=== PATIENT | female | born 1970 | race American Indian/Alaskan Native ===

== ENCOUNTER 2018-02-07 02:03 | Emergency (ER) | payer MEDICARE, OTHER ==
[~2018-02-07] VITALS: Ht 149.9 cm; Wt 136.1 kg
--- OUTSIDE RECORDS SUMMARY | ~2018-02-07 | XMS | Encounter Summary ---
Demographics + + + | Address | [address] | | | [place] [address] | + + + | Home Phone | | + + + | Preferred Language | Unknown | + + + | Marital Status | Single | + + + | Evangelical Affiliation | Unknown | + + + | Race | Unknown | + + + | Ethnic Group | Unknown | + + + Author + + + | Author | [facility] | | | and [place] | + + + | Organization | [facility] | | | and [place] | + + + | Address | Unknown | + + + | Phone | Unavailable | + + + Support + + +---------+ + | Name | Relationship | Address | Phone | + + +---------+ + | Raphael Celestin | ECON | Unknown | | + + +---------+ + | Keely Henry/Erick | ECON | Unknown | | + + +---------+ + | Zoraida Horton/Charles | ECON | Unknown | | + + +---------+ + Care Team Providers + +------+ + | Care Internet Project Manager Name | Role | Phone | + +------+ + | Kieran Phoenix DO | PCP | | + +------+ + Reason for Visit + + + | Reason | Comments | + + + | Medication Refill | | + + + Encounter Details +--------+--------+ + + + | Date | Type | Department | Care Team | Description | +--------+--------+ + + + | 02/04/ | Refill | [facility] | Benito Martin MD | Medication Refill | | 2017 | | [facility] | [address] | | | | | CLINIC [address] | [place] | | | | | [address] [place], | [id number] | | | | | [place] [address] | | | | | | [phone] | | | +--------+--------+ + + + Social History + +-------+ +--------+ + | Tobacco Use | Types | Packs/Day | Years | Date | | | | | Used | | + +-------+ +--------+ + | Former Smoker | | 1.5 | 18 | Quit: 06/24/2009 | + +-------+ +--------+ + + +---+---+---+ | Smokeless Tobacco: | | | | | Never Used | | | | + +---+---+---+ + + +---------+ + | Alcohol Use | Drinks/We | oz/Week | Comments | | | ek | | | + + +---------+ + | Yes | 0 | 0.0 | once a year | | | Standard | | | | | drinks or | | | | | | | | | | equivalen | | | | | t | | | + + +---------+ + + + + | Sex Assigned at | Date Recorded | | | | + + + | Not on file | | + + + as of this encounter Plan of Treatment +--------+ + + + + | Date | Type | Specialty | Care Team | Description | +--------+ + + + + | 02/21/ | Procedure | Neurology | Benito Martin MD | | | 2017 | visit | | [address] | | | | | | [place] | | | | | | [address] | | | | | | | | +--------+ + + + + | 03/07/ | Office | Cardiology | Chad Barnes, | | | 2017 | Visit | | [address] [place] [address] [place] | | | | | | [place], | | | | | | [place] [address] | | | | | | [phone] | | | | | | | | +--------+ + + + + | 03/26/ | Office | Neurology | Yvonne, | | | 2017 | Visit | | [address] | | | | | [address] [place], | | | | | | [place] [address] | | | | | | [phone] | | | | | | | | +--------+ + + + + | 08/05/ | Office | Neurology | Benito Martin MD | | | 2018 | Visit | | [address] | | | | | | [place] | | | | | | [address] | | | | | | | | +--------+ + + + + as of this encounter Visit Diagnoses Not on filein this encounter"
--- OUTSIDE RECORDS SUMMARY | ~2018-02-07 | XMS | Clinical Summary ---
Demographics + + + | Address | [address] | | | [place] [address] | + + + | Home Phone | | + + + | Preferred Language | Unknown | + + + | Marital Status | Single | + + + | Spiritism Affiliation | Unknown | + + + | Race | Unknown | + + + | Ethnic Group | Unknown | + + + Author + + + | Author | [facility] | | | and [place] | + + + | Organization | [facility] | | | and [place] [...] Team Providers + +------+ + | Care Veneer Production Machine Operator Name | Role | Phone | + +------+ + | Kieran Phoenix DO | PP | | + +------+ + Allergies + + + + + + | Active Allergy | Reactions | Severity | Noted | Comments | | | | | Date | | + + + + + + | Bee Venom | Anaphylaxis | High | 12/01/19 | | | | | | 14 | | + + + + + + | Coffee | Nausea And Vomiting | Medium | 12/01/19 | | | | | | 14 | | + + + + + + | Diatrizoate | Diarrhea, Nausea And | Medium | 04/04/20 | Gastrografin - | | | Vomiting | | 15 | Vomiting and | | | | | | diarrhea | | | | | | Gastrografin - | | | | | | Vomiting and | | | | | | diarrhea | + + + + + + | Dicyclomine | | | 11/23/19 | Other reaction(s): | | | | | 16 | Unknown | + + + + + + | Ondansetron | | | 03/22/20 | Other reaction(s): | | | | | 16 | Unknown | + + + + + + | Peg | Nausea And Vomiting | Medium | 06/07/19 | | | 3350-Electrolytes | | | 16 | | + + + + + + | Scopolamine | Other (See Comments) | High | 05/03/19 | Other reaction(s): | | | | | 16 | Unknown Other | | | | | | reaction(s): Unknown | | | | | | loss of vision | | | | | | loss of vision | + + + + + + Current Medications + + +---------+---------+------+------+-------+ | Prescription | Sig. | Disp. | Refills | Star | End | Statu | | | | | | t | Date | s | | | | | | Date | | | + + +---------+---------+------+------+-------+ | lidocaine | Place 1 patch onto | 30 | 2 | 10/1 | | Activ | | (LIDODERM) 5% | the skin Daily. | patch | | 6/20 | | e | | patchIndications: | Apply for 12 hours, | | | 14 | | | | Neuropathic pain | then remove for 12 | | | | | | | | hours. | | | | | | + + +---------+---------+------+------+-------+ | frovatriptan | Take 2.5 mg by mouth | | | | | Activ | | (FROVA) 2.5 MG | Twice daily as | | | | | e | | tablet | needed. if headache | | | | | | | | recurs, may take a | | | | | | | | second tablet if | | | | | | | | first dose provided | | | | | | | | relief and at least | | | | | | | | 2 hours have elapsed | | | | | | | | since the first | | | | | | | | dose. No more than | | | | | | | | 3 tablets in 24 | | | | | | | | hours. | | | | | | + + +---------+---------+------+------+-------+ | lamoTRIgine | Take 200 mg by mouth | | | | | Activ | | (LAMICTAL) 100 mg | 4 times daily. | | | | | e | | tablet | | | | | | | + + +---------+---------+------+------+-------+ | estradiol | Take 2 mg by mouth | | | | | Activ | | (ESTRACE) 2 MG | Daily. | | | | | e | | tablet | | | | | | | + + +---------+---------+------+------+-------+ | promethazine | Take 25 mg by mouth | | | | | Activ | | (PHENERGAN) 25 mg | every 6 hours as | | | | | e | | tablet | needed (take 1 | | | | | | | | tablet by mouth | | | | | | | | every 6 hours if | | | | | | | | needed for nausea | | | | | | | | and vomiting). | | | | | | + + +---------+---------+------+------+-------+ | levothyroxine | Take 100 mcg by | | | | | Activ | | (SYNTHROID, | mouth every morning | | | | | e | | LEVOTHROID) 100 mcg | (before breakfast). | | | | | | | tablet | | | | | | | + + +---------+---------+------+------+-------+ | levothyroxine | Take 88 mcg by mouth | | | | | Activ | | (SYNTHROID, | every morning | | | | | e | | LEVOTHROID) 88 mcg | (before breakfast). | | | | | | | tablet | | | | | | | + + +---------+---------+------+------+-------+ | lidocaine 5% | Apply topically as | | | | | Activ | | ointment | needed. | | | | | e | + + +---------+---------+------+------+-------+ | EPINEPHrine | Inject 0.3 mg into | | | | | Activ | | (EPIPEN) 0.3 mg/0.3 | the muscle as needed | | | | | e | | mL injection | for Anaphylaxis. | | | | | | + + +---------+---------+------+------+-------+ | baclofen | Take 10 mg by mouth | | | 2 | | Activ | | (LIORESAL) 10 mg | 2 times daily. | | | 520 | | e | | tablet | | | | 16 | | | + + +---------+---------+------+------+-------+ | omeprazole | Take 20 mg by mouth | | | 07/2 | | Activ | | (PRILOSEC) 20 mg | Daily. | | | 820 | | e | | capsule | | | | 16 | | | + + +---------+---------+------+------+-------+ | cholecalciferol | Take 1,000 Units by | | | | | Activ | | (CHOLECALCIFEROL) | mouth Daily. | | | | | e | | 1000 units TABS | | | | | | | + + +---------+---------+------+------+-------+ | DULoxetine | One cap am and 2 | 90 | 3 | 03/1 | | Activ | | (CYMBALTA) [address] | caps pm | capsule | | 5/20 | | e | | capsule | | | | 18 | | | + + +---------+---------+------+------+-------+ | ketorolac | 1 ml Intramuscular | 1 mL | 1 | 07/2 | | Activ | | (TORADOL) 15 mg/mL | every 3 weeks for | | | 7/20 | | e | | injection | pain; IM performed | | | 18 | | | | | by patient | | | | | | + + +---------+---------+------+------+-------+ | zonisamide | Take 1 capsule by | 90 | 1 | 08/3 | | Activ | | (ZONEGRAN) 25 mg | mouth 3 times daily. | capsule | | 0/20 | | e | | capsule | | | | 18 | | | + + +---------+---------+------+------+-------+ | oxyCODONE 10 MG | Take 1 tablet by | 70 | 0 | 10/1 | | Activ | | TABS | mouth 5 times daily | tablet | | 6/20 | | e | | | for 14 days. | | | 18 | | | + + +---------+---------+------+------+-------+ | oxyCODONE 10 MG | Take 1 tablet by | 70 | 0 | 09/1 | 10/0 | Disco | | TABS | mouth 5 times daily | tablet | | 0/20 | 1/20 | ntinu | | | for 14 days. | | | 18 | 18 | ed | + + +---------+---------+------+------+-------+ | oxyCODONE 10 MG | Take 1 tablet by | 70 | 0 | 10/0 | 10/1 | Disco | | TABS | mouth 5 times daily | tablet | | 1/20 | 6/20 | ntinu | | | for 14 days. | | | 18 | 18 | ed | + + +---------+---------+------+------+-------+ Active Problems + + + | Problem | Noted Date | + + + | Opioid contract exists | 05/14/2017 | + + + | Other chest pain | 07/27/2015 | + + + + + | Overview: Echocardiogram done on 09/26/2017 shows this was a | | technically difficult study with suboptimal views, the left | | ventricle appears normal in size with normal systolic function EF | | 55%, the right ventricle is normal in size and function, no | | significant valvular pathology, there is no pericardial effusion. | | Jhonny Romero MD. | + + + + + | Abdominal pain, generalized | 05/10/2015 | + + + | Opioid type dependence, continuous ([facility]) | 05/10/2015 | + + + | Morbid obesity ([facility]) | 05/10/2015 | + + + | Right lumbar radiculopathy | 02/23/2014 | + + + | Lumbalgia | 12/02/2013 | + + + | Fibromyalgia | 12/02/2013 | + + + | BMI 50.0-59.9, adult ([facility]) | 06/25/2011 | + + + | Endometriosis | | + + + | Migraine | | + + + | Seizure (HCC) | | + + + | Stomach ulcer | | + + + | Angina pectoris (HCC) | | + + + + + | Overview: TTM study 08/16/15 to 09/14/15 (30 days) reveals | | sinus rhythm and sinus tachycardia. No ectopy was shown | + + Encounters +--------+ + + + + | Date | Type | Specialty | Care Team | Description | +--------+ + + + + | 02/04/ | Refill | | Benito Martin MD | Medication Refill | | 2017 | | | | | +--------+ + + + + | 01/21/ | Telephone | | Benito Martin MD | Medication Refill | | 2017 | | | | | +--------+ + + + + | 01/20/ | Refill | | Benito Martin MD | Medication Refill | | 2017 | | | | | +--------+ + + + + | 12/30/ | Refill | | Benito Martin MD | Medication Refill | | 2017 | | | | | +--------+ + + + + | 12/25/ | Hospital | | Marilia Barnes, | | | 2017 | Encounter | | | | +--------+ + + + + | 12/25/ | Hospital | | Marilia Barnes, | Other chest pain; | | 2017 | Encounter | | 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, | Abnormal EKG | | | | | [facility] | | +--------+ + + + + | 12/19/ | Refill | | Benito Martin MD | Medication Refill | | 2017 | | | | | +--------+ + + + + | 12/11/ | Telephone | | Marilia Barnes, | Appointment Question | | 2017 | | | | | +--------+ + + + + | 12/05/ | Telephone | | Marilia Barnes, | Diagnostic Order | | 2018 | | | MD | | +--------+ + + + + | 12/02/ | Office | | Marilai Barnes, | Other chest pain | | 2017 | Visit | | MD | (Primary Dx); | | | | | | Abnormal EKG | +--------+ + + + + | 12/02/ | Refill | | Benito Martin MD | Medication Refill | | 2017 | | | | | +--------+ + + + + | 11/18/ | Telephone | | Benito Martin MD | Medication Refill | 2017 | | | | | +--------+ + + + + | 11/15/ | Telephone | | Benito Martin MD | Medication Related | | 2017 | | | | | +--------+ + + + + | 11/14/ | Refill | | Benito Martin MD | Medication Refill | | 2017 | | | | | +--------+ + + + + from Last 3 Months Family History + + +------+ + | Medical History | Relation | Name | Comments | + + +------+ + | Arthritis | Mother | | | + + +------+ + | Diabetes | Mother | | | + + +------+ + + +------+ + + | Relation | Name | Status | Comments | + +------+ + + | Father | | | homicide | + +------+ + + | Mother | | Alive | | + +------+ + + Social History + +-------+ +--------+ [...] on file | | + + + Last Filed Vital Signs + + + + | Vital Sign | Reading | Time Taken | + + + + | Blood Pressure | 132/60 | 12/02/2017 1525 PDT | + + + + | Pulse | 94 | 12/02/2017 1525 PDT | + + + + | Temperature | 37 C (98.6 F) | 07/21/2015 1138 PDT | + + + + | Respiratory Rate | 26 | 12/02/20171524 PDT | + + + + | Oxygen Saturation | 97% | 08/23/20171321 PDT | + + + + | Inhaled Oxygen | - | - | | Concentration | | | + + + + | Weight | 137 kg (302 lb) | 12/02/20171524 PDT | + + + + | Height | 149.9 cm (4' 11") | 12/02/20171524 PDT | + + + + | Body Mass Index | 61 | 12/02/2017 1525 PDT | + + + + Plan of Treatment +--------+ + + + + | Date | Type | Specialty | Care Team | Description | +--------+ + + + + | 02/21/ | Procedure | | Benito Martin MD | | | 2017 | visit | | [address] | | | | | | [place] | | | | | | [address] | | | | | | | | +--------+ + + + + | 03/07/ | Office | | Marilia Barnes, | | | 2017 | Visit | | [address] | | | | | | [place], | | | | | | [place] [address] | | | | | | [phone] | | | | | | | | +--------+ + + + + | 03/26/ | Office | | Yvonne, | | | 2017 | Visit | | [address] | | | | | [address] [place], | | | | | | [place] [address] | | | | | | [phone] | | | | | | | | +--------+ + + + + | 08/05/ | Office | | Benito Martin MD | | | 2018 | Visit | | [address] | | | | | | [place], [place] | | | | | | [address] | | | | | | | | +--------+ + + + + + + + + + | Health Maintenance | Due Date | Last Done | Comments | + + + + + | Vaccine: | 09/09/199 | | | | Dtap/Tdap/Td (1 - | 2 | | | | Tdap) | | | | + + + + + | Vaccine: | | | | | Pneumococcal 19-64 | 2 | | | | (PPSV23 only) Medium | | | | | Risk (1 of 1 - | | | | | PPSV23) | | | | + + + + + | Statin Therapy | | | | | (optimal intensity) | 5 | | | + + + + + | Vaccine: Influenza | | | | | (#1) | 8 | | | + + + + + Procedures + +--------+ + + + | Procedure Name | Priori | Date/Time | Associated Diagnosis | Comments | | | ty | | | | + +--------+ + + + | NM NUCLEAR STRESS | Routin | 12/25/2017 | Other chest pain | Results for this | | TEST (PHARMACOLOGIC | e | 1223 PDT | Abnormal EKG | procedure are in the | | - VASODILATOR) | | | | results section. | + +--------+ + + + | ECG 12 LEAD | Routin | 12/02/2017 | Other chest pain | Results for this | | | e | 1532 PDT | | procedure are in the | | | | | | results section. | + +--------+ + + + from Last 3 Months Results NM Nuclear Stress Test (Vasodilator) (12/25/2017 1223) + +--------+ + + | Component | Value | Ref Range | Performed At | + +--------+ + + | BASELINE HEART RATE | 95 | bpm | [facility] | + +--------+ + + | BASELINE BLOOD | 114/73 | mmHg | [facility] | | PRESSURE | | | | + +--------+ + + | PEAK HEART RATE | 113 | | [facility] | + +--------+ + + | PEAK BLOOD PRESSURE | 114/73 | mmHG | [facility] | + +--------+ + + | Target HR | 150 | | [facility] | + +--------+ + + | Percent HR | 64 | | [facility] | + +--------+ + + | LVEF-SPECT NUCLEAR | 57 | % | [facility] | | STRESS/VIABILITY | | | | + +--------+ + + | ST Elevation (mm) | 0.0 | mm | [facility] | + +--------+ + + + + + | Narrative | Performed At | + + + | | [facility] | | 1. Pharmacologic stress without diagnostic changes.2. Normal LV | | | size and systolic function with LVEF 57%.3. Perfusion imaging | | | notable for small to moderate sized, mild intensity area of reduced | | | uptake inferiorly without significant reversibility suggestive of | | | attenuation artifact, especially given patient's body habitus. No | | | obvious area of reversibility/ischemia noted otherwise. | | + + + + +---------+ + + | Performing | Address | City/State/Zipcode | Phone Number | | Organization | | | | + +---------+ + + | [facility] | | | | + +---------+ + + ECG 12 lead (12/02/2017 1532) + + + + + | Component | Value | Ref Range | Performed At | + + + + + | VENTRICULAR RATE EKG | 94 | BPM | [facility] | + + + + + | ATRIAL RATE | 94 | BPM | [facility] | + + + + + | P-R INTERVAL | 134 | ms | [facility] | + + + + + | QRS DURATION | 82 | ms | [facility] | + + + + + | Q-T INTERVAL | 356 | ms | [facility] | + + + + + | Q-T INTERVAL | 445 | ms | [facility] | | (CORRECTED) | | | | + + + + + | P WAVE AXIS | 47 | degrees | [facility] | + + + + + | QRS AXIS | 14 | degrees | [facility] | + + + + + | T AXIS | 14 | degrees | [facility] | + + + + + | INTERPRETATION TEXT | Normal sinus rhythmLow | | [facility] | | | voltage QRSCannot rule | | | | | out Anterior infarct | | | | | (cited on or before | | | | | 02-DEC-2017)Abnormal | | | | | ECGWhen compared with | | | | | ECG of 02-DEC-2017 | | | | | 15:31, (Unconfirmed)No | | | | | significant change was | | | | | foundConfirmed by | | | | | MARILIA BARNES MD | | | | | ([id number]) on 12/02/2017 | | | | | 4:40:01 PM | | | + + + + + + + + | Narrative | Performed At | + + + | | | + + + + +---------+ + + | Performing | Address | City/State/Zipcode | Phone Number | | Organization | | | | + +---------+ + + | [facility] | | | | + +---------+ + + from Last 3 Months Insurance + +--------+ +--------+ +---------+ | Payer | Benefi | Subscriber | Type | Phone | Address | | | t Plan | ID | | | | | | / | | | | | | | Group | | | | | + +--------+ +--------+ +---------+ | MEDICARE | MEDICA | [id number] | Medica | +1- | | | | RE | | re | [phone] | | | | PART A | | | | | | | AND B | | | | | + +--------+ +--------+ +---------+ | MEDICARE | MEDICA | [id number] | Medica | +- | | | | RE | | re | [phone] | | | | PART A | | | | | | | AND B | | | | | + +--------+ +--------+ +---------+ | [employer] | MODA | [id number] | Medica | +- | | | MEDICAID HMO | HEALTH | | id | [id number] | | | | MDCD | | | | | | | [place] | | | | | + +--------+ +--------+ +---------+ | [employer] [facility] | IHS | [id number] | Indemn | | | | SERVICE | YELLOW | | ity | | | | | [place] | | | | | + +--------+ +--------+ +---------+ + +--------+ +--------+ + + | Guarantor Name | Accoun | Relation to | Date | Phone | Billing Address | | | t Type | Patient | of | | | | | | | | | | + +--------+ +--------+ + + | ALIN HENRY | Person | Self [birth year] | Home: | [address] | | | al/Fam | | 1970 | [phone] | [place] [address] | | | [address] | | | [phone] | | + +--------+ +--------+ + + | ALIN HENRY | Person | Self [birth year] | Home: | [address] | | | al/Fam | | 1970 | [phone] | [place] [address] | | | caro | | | [address] | | + +--------+ +--------+ + +
--- OUTSIDE RECORDS SUMMARY | ~2018-02-07 | XMS | Clinical Summary ---
Demographics + + + | Address | [address] | | | [place] [address] | + + + | Home Phone | | + + + | Preferred Language | Unknown | + + + | Marital Status | Single | + + + | Presybeterian Affiliation | Unknown | + + + | Race | Unknown | + + + | Ethnic Group | Unknown | + + + Author + + + | Author | [facility] | | | and [place] | + + + | Organization | [facility] | | | and [place] | [...] Team Providers + +------+ + | Care Wellness Spa Manager Name | Role | Phone | [...] + + | Opioid type dependence, continuous ([facility]) | 05/10/2015 | + + + | Morbid obesity ([facility]) | 05/10/2015 | + + + | Right lumbar radiculopathy | 02/23/2014 | + + + | Lumbalgia | 12/02/2013 | + + + | Fibromyalgia | 12/02/2013 | + + + | BMI 50.0-59.9, adult ([facility]) | 06/25/2011 | + + + | [...] | | 2017 | 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, | | | | | | [place] [address] | | | | | | [phone] | | | | | | | | +--------+ + + + + | 03/26/ | Office | | Yvonne, | | | 2017 | Visit | | [address] | | | | | [address] [place], | | | | | | [place] [address] | | | | | | [phone] | | | | | | | | +--------+ + + + + | 08/05/ | Office | | Benito Martin MD | | | 2018 | Visit | | [address] | | | | | | [place], [place] | | | | | | [address] | | | | | | | [...] BARNES MD | | | | | ([id number]) on 12/02/2017 | | | | | [...] +--------+ +---------+ | MEDICARE | MEDICA | [id number] | Medica | +1- | | | | RE | | re | [phone] | | | | PART A | | | | | | | AND B | | | | | + +--------+ +--------+ +---------+ | MEDICARE | MEDICA | [id number] | Medica | +- | | | | RE | | re | [phone] | | | | PART A | | | | | | | AND B | | | | | + +--------+ +--------+ +---------+ | [employer] | MODA | [id number] | Medica | +- | | | MEDICAID HMO | HEALTH | | id | 9821 | | | | MDCD | | | | | | | HMO [place] | | | | | + +--------+ +--------+ +---------+ | [facility] | IHS | [id number] | Indemn | | | | SERVICE [...] | 1970 | [address] | [place] [address] | | | caro | | | [address] | | + +--------+ +--------+ + + | ALIN HENRY | Person | Self [birth year] | Home: | [address] | | | al/Fam | | 1970 | [address]- | [place] [address] | | | caro | | | [address] | | + +--------+ +--------+ + +
--- OUTSIDE RECORDS SUMMARY | ~2018-02-07 | XMS | Encounter Summary ---
Demographics + + + | Address | [address] | | | [place] [address] | + + + | Home Phone | | + + + | Preferred Language | Unknown | + + + | Marital Status | Single | + + + | Christianity Affiliation | Unknown | + + + | Race | Unknown | + + + | Ethnic Group | Unknown | + + + Author + + + | Author | [facility] | | | and [place] | + + + | Organization | [facility] | | | and [place] [...] Team Providers + +------+ + | Care Hoister Name | Role | Phone | + +------+ + | Kieran Phoenix DO | PCP | | + +------+ + Reason for Visit + + + | Reason | Comments | + + + | Medication Refill | | + + + Encounter Details +--------+ + + + + | Date | Type | Department | Care Team | Description | +--------+ + + + + | 01/21/ | Telephone | [facility] | Benito Martin MD | Medication Refill | | 2018 | | HOSPITAL NEUROLOGY | [address] | | | | | CLINIC [address] | [place] | | | | | [address] [place], | [address] | | | | | [place] [address] | | | | | | [phone] | | | +--------+ + + + + Social History + +-------+ [...] [address] | | | | | | [place] | | | | | | [address] | | | | | | | | +--------+ + + + + | 03/07/ | Office | Cardiology | Chad Barnes, | | | 2017 | Visit | | [address] [facility] | | | | | | [place], | | | | | | [place] [address] | | | | | | [phone] | | | | | | | | +--------+ + + + + | 03/26/ | Office | Neurology | Yvonne, | | | 2017 | Visit | | [address] | | | [address] [place], | | | | | | [place] [address] | | | | | | [phone] | | | | | | | | +--------+ + + + + | 08/05/ | Office | Neurology | Benito Martin MD | | | 2018 | Visit | | [address] | | | | | | [place] | | | | | | [address] | | | | | | | | +--------+ + + + + as of this encounter Visit Diagnoses Not on filein this encounter"
--- OUTSIDE RECORDS SUMMARY | ~2018-02-07 | XMS | Encounter Summary ---
Demographics + + + | Address | [address] | | | [place] [address] | + + + | Home Phone | | + + + | Preferred Language | Unknown | + + + | Marital Status | Single | + + + | Jew Affiliation | Unknown | + + + | Race | Unknown | + + + | Ethnic Group | Unknown | + + + Author + + + | Author | [facility] | | | and Niranjanana | + + + | Organization | [facility] | | | and [place] [...] Team Providers + +------+ + | Care Assistant Fitness Manager Name | Role | Phone | + +------+ + | Kieran Phoenix DO | PCP | | + +------+ + Reason for Referral Diagnostic/Screening (Routine) +--------+--------+ + + + + | Status | Reason | Specialty | Diagnoses / | Referred By | Referred To | | | | | Procedures | Contact | Contact | +--------+--------+ + + + + | Closed | | Radiology | Diagnoses | [place], | [facility] | | | | | Other chest | MD Chad | Medicine | | | | | pain | [address] | [address] | | | | | Abnormal EKG | [address] | [place], | | | | | Procedures | [place], | [place] | | | | | [place] | [place] [address] | [address] | | | | | Stress Test | Phone: | Phone: | | | | | | [phone] | [phone] | | | | | (Vasodilator | Fax: | Fax: | | | | | ) CHG | [phone] | [phone] | | | | | MYOCARDIAL | | | | | | | SPECT | | | | | | | MULTIPLE | | | | | | | STUDIES LA | | | | | | | CV STRS TST | | | | | | | XERS&/OR RX | | | | | | | CONT ECG W/O | | | | | | | I&R LA | | | | | | | CARDIAC | | | | | | | STRESS | | | | | | | TST,INTERP/R | | | | | | | EPT ONLY | | | +--------+--------+ + + + + Diagnostic/Screening (Routine) +--------+--------+ + + + + | Status | Reason | Specialty | Diagnoses / | Referred By | Referred To | | | | | Procedures | Contact | Contact | +--------+--------+ + + + + | Closed | | Radiology | Diagnoses | [place], | [facility] | | | | | Other chest | MD Chad | Medicine | | | | | pain | [address] | [address] | | | | | Abnormal EKG | [address] | [place], | | | | | Procedures | [place], | [place] | | | | | [place] | [place] [address] | [address] | | | | | Stress Test | Phone: | Phone: | | | | | | [phone] | [phone] | | | | | (Vasodilator | Fax: | Fax: | | | | | ) CHG | [phone] | [phone] | | | | | MYOCARDIAL | | | | | | | SPECT | | | | | | | MULTIPLE | | | | | | | STUDIES LA | | | | | | | CV STRS TST | | | | | | | XERS&/OR RX | | | | | | | CONT ECG W/O | | | | | | | I&R LA | | | | | | | CARDIAC | | | | | | | STRESS | | | | | | | TST,INTERP/R | | | | | | | EPT ONLY | | | +--------+--------+ + + + + Reason for Visit Auth/Cert +--------+--------+ + + + + | Status | Reason | Specialty | Diagnoses / | Referred By | Referred To | | | | | Procedures | Contact | Contact | +--------+--------+ + + + + | | | | | | | +--------+--------+ + + + + Encounter Details +--------+ + + + + | Date | Type | Department | Care Team | Description | +--------+ + + + + | / | Hospital | [facility] | Chad Barnes, | Other chest pain; | | 2018 | Encounter | [facility] | MD [address] | Abnormal EKG | | | | MEDICINE [address] | [address] [place], | | | | | [address] [place], | [place] [address] | | | | | [place] [address] | [phone] | | | | | [phone] | | | | | | | Weight Control Lecturer, Ws | | +--------+ + + + + [...] + + + as of this encounter Medications at Time of Discharge + + +---------+---------+ + + | Medication | Sig. | Disp. | Refills | Start | End Date | | | | | | Date | | + + +---------+---------+ + + | baclofen | Take 10 mg by mouth | | | 11/14/19 | | | (LIORESAL) 10 mg | 2 times daily. | | | 16 | | | tablet | | | | | | + + +---------+---------+ + + | cholecalciferol | Take 1,000 Units by | | | | | | (CHOLECALCIFEROL) | mouth Daily. | | | | | | 1000 units TABS | | | | | | + + +---------+---------+ + + | DULoxetine | One cap am and 2 | 90 | 3 | 07/05/19 | | | (CYMBALTA) [address] | caps pm | capsule | | 18 | | | capsule | | | | | | + + +---------+---------+ + + | EPINEPHrine | Inject 0.3 mg into | | | | | | (EPIPEN) 0.3 mg/0.3 | the muscle as needed | | | | | | mL injection | for Anaphylaxis. | | | | | + + +---------+---------+ + + | estradiol | Take 2 mg by mouth | | | | | | (ESTRACE) 2 MG | Daily. | | | | | | tablet | | | | | | + + +---------+---------+ + + | frovatriptan | Take 2.5 mg by mouth | | | | | | (FROVA) 2.5 MG | Twice daily as | | | | | | tablet | needed. if headache [...] | hours. | | | | | + + +---------+---------+ + + | ketorolac | 1 ml Intramuscular | 1 mL | 1 | 11/16/19 | | | (TORADOL) 15 mg/mL | every 3 weeks for | | | 18 | | | injection | pain; IM performed | | | | | | | by patient | | | | | + + +---------+---------+ + + | lamoTRIgine | Take 200 mg by mouth | | | | | | (LAMICTAL) 100 mg | 4 times daily. | | | | | | tablet | | | | | | + + +---------+---------+ + + | levothyroxine | Take 100 mcg by | | | | | | (SYNTHROID, | mouth every morning | | | | | | LEVOTHROID) 100 mcg | (before breakfast). | | | | | | tablet | | | | | | + + +---------+---------+ + + | levothyroxine | Take 88 mcg by mouth | | | | | | (SYNTHROID, | every morning | | | | | | LEVOTHROID) 88 mcg | (before breakfast). | | | | | | tablet | | | | | | + + +---------+---------+ + + | lidocaine | Place 1 patch onto | 30 | 2 | 02/05/20 | | | (LIDODERM) 5% | the skin Daily. | patch | | 14 | | | patchIndications: | Apply for 12 hours, | | | | | | Neuropathic pain | then remove for 12 | | | | | | | hours. | | | | | + + +---------+---------+ + + | lidocaine 5% | Apply topically as | | | | | | ointment | needed. | | | | | + + +---------+---------+ + + | omeprazole | Take 20 mg by mouth | | | 11/17/19 | | | (PRILOSEC) 20 mg | Daily. | | | 16 | | | capsule | | | | | | + + +---------+---------+ + + | promethazine | Take 25 mg by mouth | | | | | | (PHENERGAN) 25 mg | every 6 hours as | | | | | | tablet | needed (take 1 | | | | | | | tablet by mouth | | | | | | | every 6 hours if | | | | | | | needed for nausea | | | | | | | and vomiting). | | | | | + + +---------+---------+ + + | zonisamide | Take 1 capsule by | 90 | 1 | 12/20/19 | | | (ZONEGRAN) 25 mg | mouth 3 times daily. | capsule | | 18 | | | capsule | | | | | | + + +---------+---------+ + + | oxyCODONE 10 MG | Take 1 tablet by | 70 | 0 | 12/03/19 | | | TABS | mouth 5 times daily | tablet | | 18 | 8 | | | for 14 days. | | | | | + + +---------+---------+ + + as of this encounter Plan of Treatment +--------+ + + + + | Date | Type | Specialty | Care Team | Description | +--------+ + + + + | 02/21/ | Procedure | Neurology | Benito Martin MD | | | 2017 | visit | | [address] | | | | | | [place] | | | | | | [address] | | | | | | | | +--------+ + + + + | 03/07/ | Office | Cardiology | Chad Barnes, | | | 2017 | Visit | | [address] | | | | | | [place], | | | | | | [place] [address] | | | | | | [phone] | | | | | | | | +--------+ + + + + | 03/26/ | Office | Neurology | Yvonne, | | | 2017 | Visit | | [address] | | | | [address] [place], | | | | | | [place] [address] | | | | | | [phone] | | | | | | | | +--------+ + + + + | 08/05/ | Office | Neurology | Benito Martin MD | | | 2019 | Visit | | [address] | | | | | | [place] | | | | | | [address] | | | | | | | | +--------+ + + + + as of this encounter Procedures + +--------+ + + + | [...] section. | + +--------+ + + + in this encounter Results [place] Nuclear Stress Test (Vasodilator) (12/25/2017 [...] | | | + +---------+ + + in this encounter Visit Diagnoses + + | Diagnosis | + + | Other chest pain | + + | Abnormal EKG | + + | Nonspecific abnormal electrocardiogram (ECG) (EKG) | + + Administered Medications + +--------+ +--------+------+------+ | Medication Order | MAR | Action | Dose | Rate | Site | | | Action | Date | | | | + +--------+ +--------+------+------+ | regadenoson (LEXISCAN) | Given | 12/25/2017 | 0.4 mg | | | | injection 0.4 mg 0.4 mg, | | 10:29 | | | | | Intravenous, ONCE PRN, per md, | | PDT | | | | | Starting 12/25/17 at 1028, For | | | | | | | 1 dose, Give IV push over 10 | | | | | | | seconds, then follow immediately | | | | | | | with 5 mL saline flush. | | | | | | + +--------+ +--------+------+------+ +---+---+ | | | +---+---+ + +-------+ + +---+---+ | technetium TC-99M sestamibi | Given | 12/25/2017 | 11.3 | | | | (CARDIOLITE) injection 11.3 | | 10:29 | millicur | | | | millicurie 11.3 millicurie, | | PDT | ies | | | | Intravenous, ONCE PRN, Other, | | | | | | | Starting Sat12/25/17 at 1028, For | | | | | | | 1 dose, Nuclear Medicine | | | | | | + +-------+ + +---+---+ +---+---+ | | | +---+---+ in this encounter"
--- OUTSIDE RECORDS SUMMARY | ~2018-02-07 | XMS | Encounter Summary ---
Demographics + + + | Address | [address] | | | [place] [address] | + + + | Home Phone | | + + + | Preferred Language | Unknown | + + + | Marital Status | Single | + + + | Jehovah'S Witness Affiliation | Unknown | + + + | Race | Unknown | + + + | Ethnic Group | Unknown | + + + Author + + + | Author | [facility] | | | and Niranjanana | + + + | Organization | [facility] | | | and [place] [...] Team Providers + +------+ + | Care Unix Architect Name | Role | Phone | + +------+ + | Kieran Phoenix DO | PCP | | + +------+ + Reason for Visit + + + | Reason | Comments | + + + | Medication Related | | + + + Encounter Details +--------+ + + + + | Date | Type | Department | Care Team | Description | +--------+ + + + + | 11/15/ | Telephone | [facility] | Benito Martin MD | Medication Related | | 2018 | | [facility]OSPITAL [facility] | [address] | | | | | CLINIC [address] | [place] | | | | | [address] [place], | [address] | | | | | [place] [address] | | | | | | [phone] | | | +--------+ + + + [...] [place] | | | | | | [address] | | | | | | | | +--------+ + + + + | 03/07/ | Office | Cardiology | Chad Barnes, | | | 2017 | Visit | | [address] | | | | | | [place], | | | | | | [place] [address] | | | | | | [phone] | | | | | | | | +--------+ + + + + | 03/26/ | Office | Neurology | Yvonne, | | | 2017 | Visit | | [address] | [address] [place], | | | | | | [place] [address] | | | | | | [phone] | | | | | | | | +--------+ + + + + | 08/05/ | Office | Neurology | Benito Martin MD | | | 2018 | Visit | | [address] | | | | | | [place] | | | | | | [address] | | | | | | | | +--------+ + + + + as of this encounter Visit Diagnoses Not on filein this encounter"
--- OUTSIDE RECORDS SUMMARY | ~2018-02-07 | XMS | Encounter Summary ---
Demographics + + + | Address | [address] | | | [place] [address] | + + + | Home Phone | | + + + | Preferred Language | Unknown | + + + | Marital Status | Single | + + + | Anabaptism Affiliation | Unknown | + + + | Race | Unknown | + + + | Ethnic Group | Unknown | + + + Author + + + | Author | [facility] | | | and Niranjanana | + + + | Organization | [facility] | | | and [place] | [...] Team Providers + +------+ + | Care Knife Machine Operator Name | Role | Phone [...] Description | +--------+--------+ + + + | 12/02/ | Refill | [facility] | Benito Martin MD | Medication Refill | | 2017 | | HOSPITAL NEUROLOGY | [address] | | | | | CLINIC [address] | [place] | | | | | [address] [place], | [id number] | | | | | [place] [address] | | | | | | [phone] | | | +--------+--------+ + + + [...] [place] | | | | | | [address] | | | | | | | | +--------+ + + + + | 03/07/ | Office | Cardiology | Chad Barnes, | | | 2017 | Visit | | [address] [place] [address] [place] | | | | | | [place], | | | | | | [place] [address] | | | | | | [phone] | | | | | | | | +--------+ + + + + | 03/26/ | Office | Neurology | Yvonne, | | | 2017 | Visit | | [address] | | [address] [place], | | | | | | [place] [address] | | | | | | [phone] | | | | | | | | +--------+ + + + + | 08/05/ | Office | Neurology | Benito Martin MD | | | 2018 | Visit | | [address] | | | | | | [place], [place] | | | | | | [address] | | | | | | | | +--------+ + + + + + +--------+ + + | Name | Priori | Associated Diagnoses | Order Schedule | | | ty | | | + +--------+ + + | Trigger Point Injection Procedure | Routin | Sprain of | Ordered: 12/11/2017 | | | e | ligaments of lumbar | | | | | spine, sequela | | | | | Chronic low back | | | | | pain without | | | | | sciatica, | | | | | unspecified back | | | | | pain laterality | | + +--------+ + + as of this encounter Visit Diagnoses + + | Diagnosis | + + | Chronic low back pain without sciatica, unspecified back pain laterality - Primary | + + | Sprain of ligaments of lumbar spine, sequela | + +"
--- OUTSIDE RECORDS SUMMARY | ~2018-02-07 | XMS | Encounter Summary ---
Demographics + + + | Address | [address] | | | [place] [address] | + + + | Home Phone | | + + + | Preferred Language | Unknown | + + + | Marital Status | Single | + + + | Anglican Affiliation | Unknown | + + + | Race | Unknown | + + + | Ethnic Group | Unknown | + + + Author + + + | Author | [facility] | | | and Niranjanana | + + + | Organization | [facility] | | | and [place] [...] Team Providers + +------+ + | Care Avionics Repair Technician Name | Role | Phone | + [...] | | | [address] [place], | [id number] | | | | | [place] [address] | | | | | | [phone] | | | +--------+--------+ + + + [...] [place] | | | | | | [address] | | | | | | | | +--------+ + + + + | 03/07/ | Office | Cardiology | Chad Barnes, | | | 2017 | Visit | | [address] [place] [address] [place] | | | | | | [place], | | | | | | [place] [address] | | | | | | [phone] | | | | | | | | +--------+ + + + + | 03/26/ | Office | Neurology | Yvonne, | | | 2017 | Visit | | [address] | | | | [address] [place], | | | | | | [place] [address] | | | | | | [phone] | | | | | | | | +--------+ + + + + | 08/05/ | Office | Neurology | Benito Martin MD | | | 2018 | Visit | | [address] | | | | | | [place], [place] | | | | | | [address] | | | | | | | [...]
--- OUTSIDE RECORDS SUMMARY | ~2018-02-07 | XMS | Clinical Summary ---
Demographics + + + | Address | [address] | | | [place] [address] | + + + | Home Phone | | + + + | Preferred Language | Unknown | + + + | Marital Status | Unknown | + + + | Islam Affiliation | Unknown | + + + | Race | Unknown | + + + | Ethnic Group | Unknown | + + + Author + + + | Author | [facility] | + + + | Organization | [facility] | + + + | Address | Unknown | + + + | Phone | Unavailable | + + + Support + + +---------+ + | Name | Relationship | Address | Phone | + + +---------+ + | Raphael Akhtar | ECON | Unknown | | + + +---------+ + | Lorri,Lupe | ECON | Unknown | | + + +---------+ + Care Team Providers + +------+ + | Care Mixer Operator Raw Salt Name | Role | Phone | + +------+ + | Mihai Snell | PP | | + +------+ + Allergies No Known Allergies Current Medications + + +--------+---------+------+------+-------+ | Prescription | Sig. | Disp. | Refills | Star | End | Statu | | | | | | t | Date | s | | | | | | Date | | | + + +--------+---------+------+------+-------+ | lamivudine | Take 100 mg by mouth | | | | | Activ | | (EPIVIR) 100 MG | 4 (four) times | | | | | e | | tablet | daily. | | | | | | + + +--------+---------+------+------+-------+ | diphenhydrAMINE | Take 25 mg by mouth | | | | | Activ | | (SOMINEX) 25 MG | 2 (two) times daily. | | | | | e | | tablet | | | | | | | + + +--------+---------+------+------+-------+ | nortriptyline | Take 50 mg by mouth | | | | | Activ | | (PAMELOR) 50 MG | nightly. | | | | | e | | capsule | | | | | | | + + +--------+---------+------+------+-------+ | frovatriptan | Take 2.5 mg by mouth | | | | | Activ | | (FROVA) 2.5 MG | as needed for | | | | | e | | tablet | Migraine. If recurs, | | | | | | | | may repeat after 2 | | | | | | | | hours. Max of 3 tabs | | | | | | | | in 24 hours. | | | | | | + + +--------+---------+------+------+-------+ | gabapentin | Take 300 mg by mouth | | | | | Activ | | (NEURONTIN) 300 MG | 2 (two) times | | | | | e | | capsule | daily. | | | | | | + + +--------+---------+------+------+-------+ | lidocaine | Apply topically as | | | | | Activ | | (XYLOCAINE) 5 % | needed. | | | | | e | | ointment | | | | | | | + + +--------+---------+------+------+-------+ | calcium carbonate | Take 600 mg by mouth | | | | | Activ | | (OS-ISIAH) 600 MG TABS | 2 (two) times daily | | | | | e | | | with meals. | | | | | | + + +--------+---------+------+------+-------+ | ergocalciferol | Take 50,000 Units by | | | | | Activ | | (DRISDOL) [address] | mouth once a week. | | | | | e | | UNITS capsule | | | | | | | + + +--------+---------+------+------+-------+ | | Take 1 tablet by | | | | | Activ | | HYDROcodone-acetamin | mouth every 6 (six) | | | | | e | | ophen (NORCO) | hours as needed for | | | | | | | 7.5-325 MG per | Pain. | | | | | | | tablet | | | | | | | + + +--------+---------+------+------+-------+ | ibuprofen (MOTRIN) | Take 800 mg by mouth | | | | | Activ | | 800 MG tablet | every 6 (six) hours | | | | | e | | | as needed for Pain. | | | | | | + + +--------+---------+------+------+-------+ | levothyroxine | Take 1 tablet by | 30 | 11 | 01/0 | | Activ | | (SYNTHROID) 200 MCG | mouth every morning | tablet | | 9/20 | | e | | tablet | before breakfast. | | | 15 | | | + + +--------+---------+------+------+-------+ Active Problems + + + | Problem | Noted Date | + + + | Hypothyroidism | 03/24/2014 | + + + | Thyroid cancer | 03/24/2014 | + + + Social History + +-------+ +--------+------+ | Tobacco Use | Types | Packs/Day | Years | Date | | | | | Used | | + +-------+ +--------+------+ | Former Smoker | | 1.5 | 18 | | + +-------+ +--------+------+ + + + | Sex Assigned at | Date Recorded | | | | + + + | Not on file | | + + + Last Filed Vital Signs + + + + | Vital Sign | Reading | Time Taken | + + + + | Blood Pressure | - | - | + + + + | Pulse | 110 | 03/24/2014 4:00 PM PST | + + + + | Temperature | 36.9 C (98.5 F) | 03/24/2014 4:00 PM PST | + + + + | Respiratory Rate | - | - | + + + + | Oxygen Saturation | 98% | 03/24/2014 4:00 PM PST | + + + + | Inhaled Oxygen | - | - | | Concentration | | | + + + + | Weight | 117.5 kg (259 lb) | 03/24/2014 4:00 PM PST | + + + + | Height | - | - | + + + + | Body Mass Index | - | - | + + + + Plan of Treatment + + + + + | Health Maintenance | Due Date | Last Done | Comments | + + + + + | Vaccine: | | | | | Dtap/Tdap/Td (1 - | 2 | | | | Tdap) | | | | + + + + + | Cervical Cancer | | | | | Screening (Pap) | 3 | | | + + + + + | Vaccine: Influenza | | | | | (#1) | 8 | | | + + + + + Results Not on filefrom Last 3 Months Insurance + +--------+ +------+-------+---------+ | Payer | Benefi | Subscriber | Type | Phone | Address | | | t Plan | ID | | | | | | / | | | | | | | Group | | | | | + +--------+ +------+-------+---------+ | [employer] | [employer] | [id number] | | | | | | WORK | | | | | + +--------+ +------+-------+---------+ + +--------+ +--------+ + + | Guarantor Name | Accoun | Relation to | Date | Phone | Billing Address | | | t Type | Patient | of | | | | | | | | | | + +--------+ +--------+ + + | ALIN MORAN | Person | Self [birth year] Home: | [address] [place] [address] | | | al/Fam | | 1971 | [phone] [place] | | | caro | | | [phone] | [address] | + +--------+ +--------+ + +"
--- OUTSIDE RECORDS SUMMARY | ~2018-02-07 | XMS | Encounter Summary ---
Demographics + + + | Address | [address] | | | [place] [address] | + + + | Home Phone | | + + + | Preferred Language | Unknown | + + + | Marital Status | Single | + + + | Congregational Affiliation | Unknown | + + + | Race | Unknown | + + + | Ethnic Group | Unknown | + + + Author + + + | Author | [facility] | | | and Niranjanana | + + + | Organization | [facility] | | | and [place] [...] Team Providers + +------+ + | Care Channeling Machine Operator Name | Role | Phone [...] Description | +--------+--------+ + + + | 11/14/ | Refill | [facility] | Benito Martin MD | Medication Refill | | 2017 | | HOSPITAL NEUR[facility] | [address] | | | | | CLIN[address] | [place] | | | | | [address] [place], | [phone] | | | | | [place] [address] | | | | | | [phone] | | | +--------+--------+ + + + [...] [place] | | | | | | [address] | | | | | | | | +--------+ + + + + | 03/07/ | Office | Cardiology | Chad Barnes, | | | 2017 | Visit | | [address] [place] [address] [place] | | | | | | [place], | | | | | | [place] [address] | | | | | | [phone] | | | | | | | | +--------+ + + + + | 03/26/ | Office | Neurology | Yvonne, | | | 2017 | Visit | | [address] | | | | [address] [place], | | | | | | [place] [address] | | | | | | [phone] | | | | | | | [...]
--- OUTSIDE RECORDS SUMMARY | ~2018-02-07 | XMS | Encounter Summary ---
Demographics + + + | Address | [address] | | | [place] [address] | + + + | Home Phone | | + + + | Preferred Language | Unknown | + + + | Marital Status | Single | + + + | Congregation Affiliation | Unknown | + + + | Race | Unknown | + + + | Ethnic Group | Unknown | + + + Author + + + | Author | [facility] | | | and Niranjanana | + + + | Organization | [facility] | | | and [place] | [...] Team Providers + +------+ + | Care Disability Rater Name | Role | Phone | + [...] | | | Other chest | MD Marilia | Medicine | | | | | pain | [address] | [address] | | | | | Abnormal EKG | [address] | [place], | | | | | Procedures | [place], | [place] | | | | | [place] | [place] [address] | [address] | | | | | Stress Test | Phone: | Phone: | | | | | | [phone] | [phone] | | | | | (Vasodilator | Fax: | Fax: | | | | | ) CHG | [phone] | [phone] | | | | | MYOCARDIAL | | | | | | | SPECT | | | | | | | MULTIPLE | | | | | | | STUDIES [place] | | | | | | | CV STRS TST | | | | | | | XERS&/OR RX | | | | | | | CONT ECG W/O | | | | | | | I&R [place] | | | | | | | CARDIAC | | | | | | | STRESS | | | | | | | TST,INTERP/R | | | | | | | EPT ONLY | | | +--------+--------+ + + + + Reason for Visit + + + | Reason | Comments | + + + | Follow-up | | + + + | Chest Pain | | + + + Follow Up (Routine) +--------+--------+ + + + + | Status | Reason | Specialty | Diagnoses / | Referred By | Referred To | | | | | Procedures | Contact | Contact | +--------+--------+ + + + + | Closed | | Cardiology | Diagnoses | [place], | Desireewarody, | | | | | Angina | Kieran Bonner DO | MD Marilia | | | | | pectoris, | [address] | [address] | | | | | unspecified | [facility] | [address] | | | | | ([facility]) Other | WAY | [place], | | | | | chest pain | [place], | [place] [address] | | | | | Procedures | [place] [address] | Phone: | | | | | FUP | Phone: | [phone] | | | | | | [phone] | Fax: | | | | | | Fax: | [phone] | | | | | | [phone] | | +--------+--------+ + + + + Encounter Details +--------+---------+ + + + | Date | Type | Department | Care Team | Description | +--------+---------+ + + + | 12/02/ | [facility] | [facility] | Marilia Barnes, | Other chest pain | | 2018 | Visit | CARDIOLOGY [address] | (Primary Dx); | | | | [place], | [place], | Abnormal EKG | | | | [place] [address] | [place] [address] | | | | | [phone] | [phone] | | | | | | | | +--------+---------+ + + + Social History + +-------+ [...] + + + as of this encounter Last Filed Vital Signs + + + + | Vital Sign | Reading | Time Taken | + + + + | Blood Pressure | 132/60 | 12/02/20175 PDT | + + + + | Pulse | 94 | 12/02/20171524 PDT | + + + + | Temperature | - | - | + + + + | Respiratory Rate | 26 | 12/02/20175 PDT | + + + + | Oxygen Saturation | - | - | + + + + | Inhaled Oxygen | - | - | | Concentration | | | + + + + | Weight | 137 kg (302 lb) | 12/02/20171524 PDT | + + + + | Height | 149.9 cm (4' 11") | 12/02/20175 PDT | + + + + | Body Mass Index | 61 | 12/02/20171524 PDT | + + + + in this encounter Instructions Patient Instructions - Kathy Moore RN - 12/02/2017 1600 PDTpersantine Date: Check-in Time: Where to Check In: Instructions 1. Nothing to eat or drink anything 6 hours prior to Persantine/Lexiscan 2. DO NOT drink caffeine 12 hours prior to the test.. 3. You can take all medications the morning of the test with a small sip of water. 4. Please bring a list of your current medications with you. Resting Portion of test: Date: Check-in Time: Where to Check In: Follow up appointment: 2 months Provider: Date: Check-In Time: in this encounter Progress Notes Marilia Barnes, MD - 12/02/2017 1600 PDTFormatting of this note may be different from dagoberto lentz original. PATIENT NAME: Alin Henry : 1970: AGE: 46 y.o. PRIMARY CARE: Kieran Phoenix DO OUTPATIENT FOLLOW UP VISIT Date of Service: 12/02/2017 HISTORY OF PRESENT ILLNESS: Alin Henry is a 46 y.o. female with a history of hypothyroidism, back pain, chronic pa in syndrome, fibromyalgia, uterine fibroid, obesity, inactivity. She is being seen today fo r pre op clearance prior to abdominal surgery. She was last seen 11/23/2015 at which time patient was scheduled for an echocardiogram and st ress test which was not done. Since that time, patients main complaint is abdominal pain. She is being seen by a surgeon at [facility] who planned to perform laparoscopic exploratory. Tod ay, she continued to complain of occasional nonexertional substernal chest pain. Patient is physically inactive she is in an electrical wheelchair. Patient denies breathlessness. The re is no palpitations, dizziness or lightheadedness. There is mild ankle and leg swelling. P atient can sleep on one pillow at night without difficulty breathing. MEDICAL, SURGICAL, AND PERSONAL HISTORY Past Medical, Surgical, Family, and Social History are reviewed in EPIC. CURRENT PROBLEMS Patient Active Problem List Diagnosis Lumbalgia Fibromyalgia Endometriosis Migraine Seizure Stomach ulcer Right lumbar radiculopathy Abdominal pain, generalized Opioid type dependence, continuous Morbid obesity Other chest pain Angina pectoris BMI 50.0-59.9, adult Opioid contract exists CURRENT MEDICATIONS Current Outpatient Prescriptions Medication Sig Dispense Refill baclofen (LIORESAL) 10 mg tablet Take 10 mg by mouth 2 times daily. cholecalciferol (CHOLECALCIFEROL) 1000 units TABS Take 1,000 Units by mouth Daily. DULoxetine (CYMBALTA) [address] capsule One cap am and 2 caps pm 90 capsule 3 EPINEPHrine (EPIPEN) 0.3 mg/0.3 mL injection Inject 0.3 mg into the muscle as needed fo r Anaphylaxis. estradiol (ESTRACE) 2 MG tablet Take 2 mg by mouth Daily. frovatriptan (FROVA) 2.5 MG tablet Take 2.5 mg by mouth Twice daily as needed. if head ache recurs, may take a second tablet if first dose provided relief and at least 2 hours hav e elapsed since the first dose. No more than 3 tablets in 24 hours. ketorolac (TORADOL) 15 mg/mL injection 1 ml Intramuscular every 3 weeks for pain; IM pe rformed by patient 1 mL 1 lamoTRIgine (LAMICTAL) 100 mg tablet Take 200 mg by mouth 4 times daily. levothyroxine (SYNTHROID, LEVOTHROID) 100 mcg tablet Take 100 mcg by mouth every mornin g (before breakfast). levothyroxine (SYNTHROID, LEVOTHROID) 88 mcg tablet Take 88 mcg by mouth every morning (before breakfast). lidocaine (LIDODERM) 5% patch Place 1 patch onto the skin Daily. Apply for 12 hours, th en remove for 12 hours. 30 patch 2 lidocaine 5% ointment Apply topically as needed. omeprazole (PRILOSEC) 20 mg capsule Take 20 mg by mouth Daily. oxyCODONE 10 MG TABS Take 1 tablet by mouth 5 times daily for 14 days. 70 tablet 0 promethazine (PHENERGAN) 25 mg tablet Take 25 mg by mouth every 6 hours as needed (take 1 tablet by mouth every 6 hours if needed for nausea and vomiting). zonisamide (ZONEGRAN) 25 mg capsule Take 25 mg by mouth 4 times daily. zonisamide (ZONEGRAN) 25 mg capsule Take by mouth. No current facility-administered medications for this visit. ALLERGIES Allergies Allergen Reactions Bee Venom Anaphylaxis Scopolamine Other (See Comments) Other reaction(s): Unknown Other reaction(s): Unknown loss of vision loss of vision Coffee Nausea And Vomiting Diatrizoate Diarrhea and Nausea And Vomiting Gastrografin - Vomiting and diarrhea Gastrografin - Vomiting and diarrhea Peg 3350-Electrolytes Nausea And Vomiting Dicyclomine Other reaction(s): Unknown Ondansetron Other reaction(s): Unknown ROS Review of Systems Constitutional: Negative for chills, diaphoresis, fever, malaise/fatigue and weight loss. HENT: Negative for congestion, hearing loss, nosebleeds and tinnitus. Dental Problems = No Eyes: Negative for blurred vision and double vision. Respiratory: Negative for shortness of breath. Cardiovascular: Negative for chest pain, palpitations and leg swelling. Gastrointestinal: Negative for blood in stool, constipation, diarrhea, nausea and vomiting. Genitourinary: Negative for dysuria, frequency, hematuria and urgency. Musculoskeletal: Negative for back pain, falls, joint pain, myalgias and neck pain. Gait Problems = No Skin: Negative for itching and rash. Neurological: Negative for dizziness, tingling, tremors, speech change, seizures, loss of c onsciousness and weakness. Lightheaded = No Endo/Heme/Allergies: Does not bruise/bleed easily. Psychiatric/Behavioral: Negative for memory loss. The patient is not nervous/anxious and do es not have insomnia. OBJECTIVE: PHYSICAL EXAM BP 132/60 | Pulse 94 | Resp 26 | Ht 1.499 m (4' 11") | Wt (!) 137 kg (302 lb) | BMI 61 .00 kg/m Physical Exam Constitutional: She is oriented to person, place, and time. She appears well-developed and well-nourished. Morbidly obese female individual arrives in an electrical wheelchair, no acute distress. Neck: Normal carotid pulses and no JVD present. Carotid bruit is not present. Cardiovascular: Normal rate, regular rhythm, S1 normal, S2 normal, normal heart sounds and intact distal pulses. PMI is not displaced. Exam reveals no gallop and no friction rub. No murmur heard. Pulses: Carotid pulses are 2+ on the right side, and 2+ on the left side. Posterior tibial pulses are 2+ on the right side, and 2+ on the left side. Pulmonary/Chest: Effort normal and breath sounds normal. No accessory muscle usage. No resp iratory distress. She has no wheezes. She has no rhonchi. She has no rales. Abdominal: Soft. Normal appearance and normal aorta. She exhibits no abdominal bruit. There is no hepatosplenomegaly. There is no tenderness. Musculoskeletal: She exhibits no edema. Neurological: She is alert and oriented to person, place, and time. Gait normal. Skin: Skin is warm and dry. No cyanosis. Nails show no clubbing. Psychiatric: She has a normal mood and affect. Her mood appears not anxious. She does not e xhibit a depressed mood. ECG: Normal sinus rhythm, cannot rule out anterior infarct. LAB RESULTS reviewed during visit today primarily from [facility]: LIPID Lab Results Component Value Date LDLEX 84 08/23/2015 HDLEX 106 08/23/2015 TRIGEX 221 (A) 08/23/2015 CHOLEX 234 (A) 08/23/2015 CHEMISTRY Lab Results Component Value Date GLU 115 (H) 12/02/2013 GLUEX 112 (A) 08/23/2015 NA 139 12/02/2013 NAEX 141 08/23/2015 K 3.9 12/02/2013 KEX 3.9 08/23/2015 CL 110 (H) 12/02/2013 CLEX 106 08/23/2015 CO2 22 (L) 12/02/2013 CO2EX 25 08/23/2015 CALCIUM 9.6 12/02/2013 ALKPHOS 84 12/02/2013 AST 21 12/02/2013 ASTEX 13 05/10/2015 ALT 25 12/02/2013 ALTEX 11 05/10/2015 BILITOT 0.5 12/02/2013 CREA 0.59 (L) 12/02/2013 BUN 9 12/02/2013 EGFREX 60 08/23/2015 CREEX 0.71 08/23/2015 HEMATOLOGY Lab Results Component Value Date WBC 10.5 12/02/2013 WBCEX 9.6 08/23/2015 HGB 14.7 12/02/2013 HGBEX 15.2 08/23/2015 HCT 43.6 12/02/2013 HCTEX 45.3 08/23/2015 PLT 306 12/02/2013 PLTEX 286 08/23/2015 Above data and testing is reviewed this visit; testing below is historical data unless othe rwise specified. ASSESSMENT: 1. Chest pain and increasing shortness of breath ruled out myocardial ischemia/congestive heart failure/pre op clearance prior to abdominal surgery A. Patient presented with 6-8 months symptoms of 8/10 substernal chest discomfort, shortne ss of breath, nausea and dizziness. First episode happened on of 2014. Since then, she had 2 more episodes of chest pain that woke her up from sleeping. She also repor keenan symptom of increasing shortness of breath on exertion. Her physical activity is very li mited due to a chronic pain. She's spend most of the time laying down in bed. She has gain ed weight steadily. She has 2 ER visit at [facility] where the initial workup was negative. B. Event monitor from 08/16/15 shows sinus tachycardia/sinus rhythm, no symptom reported, n o ectopy seen. C. Echocardiogram done on 09/26/2017 shows this was a technically difficult study with subop timal views, the left ventricle appears normal in size with normal systolic function EF 55%, the right ventricle is normal in size and function, no significant valvular pathology, ther e is no pericardial effusion. Jhonny Romero MD. D. Today, she continued to complain of occasional nonexertional substernal chest pain. Edilberto leiva is physically inactive she is in an electrical wheelchair. There is no signs and symp toms of overt congestive heart failure. She is in a class I of [employer] fu nctional class. There is no fluid retention on physical examination. EKG is also abnormal cannot rule out anterior wall myocardial ischemia. 2. Obesity 3. Inactivity 4. Uterine fibroid A. Post hysterectomy and oophorectomy. 5. Thyroid cancer A. Post thyroidectomy now on thyroid supplement. PLAN: 1. Schedule patient for Persantine SPECT MPI for chest pain and abnormal EKG . 2. She will continue with current medical regimen. 3. I recommend a therapeutic lifestyle change including choosing healthy choices of diet, including DASH diet and weight reduction. 4. Follow-up in 2 months with [facility] I, Farzana Salgado, am acting as a scribe on behalf of, and in the presence of Marilia hightower MD. I have reviewed and edited this note. Farzana Salgado Commission Agent Livestock 12/02/2017 I, Marilia Barnes MD, personally performed the services described in this documentation, as scribed in my presence and it is both accurate and complete. Farzana Salgado, Med Ass t 12/02/2017 15:42 Electronically signed by: Marilia Barnes MD [facility] 12/02/2017 Portions of this chart may have been created with [employer] voice recognition software. Occasi onal wrong-word or sound-alike substitutions may have occurred due to the inherent martin itations of voice recognition software. Please read the chart carefully and recognize, using context, where these substitutions have occurred in this encounter Plan of Treatment +--------+ + + + + | Date | Type | Specialty | Care Team | Description | +--------+ + + + + | 02/21/ | Procedure | Neurology | Benito Martin MD | | | 2017 | visit | | [address] | | | | | | [place], [place] | | | | | | [address] | | | | | | | | +--------+ + + + + | 03/07/ | Office | Cardiology | Marilia Barnes, | | | 2017 | Visit | | [address] | | | | | | [place], | | | | | | [place] [address] | | | | | | [phone] | | | | | | | | +--------+ + + + + | 03/26/ | Office | Neurology | Yvonne, | | | 2017 | Visit | | [address] | | | | | | [address] [place], | | | | | | [place] [address] | | | | | | [phone] | | | | | | | | +--------+ + + + + | 08/05/ | Office | Neurology | Benito Martin MD | | | 2019 | Visit | | [address] | | | | | | [place] | | | | | | [address] | | | | | | | [...] foundConfirmed by | | | | | NICK ARMENDARIZ, MARILIA | | | | | ([id number]) on 12/02/2017 | | | | | [...] | + + | Other chest pain - Primary | + + | Abnormal EKG | + + | Nonspecific abnormal electrocardiogram (ECG) (EKG) | + +
--- OUTSIDE RECORDS SUMMARY | ~2018-02-07 | XMS | Encounter Summary ---
Demographics + + + | Address | [address] | | | [place] [address] | + + + | Home Phone | | + + + | Preferred Language | Unknown | + + + | Marital Status | Single | + + + | Buddhism Affiliation | Unknown | + + + | Race | Unknown | + + + | Ethnic Group | Unknown | + + + Author + + + | Author | [facility] | | | and [place]iranjanana | + + + | Organization | [facility] | | | and [place] | [...] Team Providers + +------+ + | Care Can Operator Name | Role | Phone | + +------+ + | Kieran Phoenix DO | PCP | | + +------+ + Reason for Visit Auth/Cert +--------+--------+ + [...] + + | 12/25/ | Hospital | [facility] | Chad Barnes, | | | 2018 | Encounter | MED CTR NUCLEAR | [address] | | | | | MEDICINE [address] | [place], | | | | | [place], | [place] [address] | | | | | [place] [address] | [phone] | | | | | [phone] | | | +--------+ + + + [...] and 2 | 90 | 3 | // | | | (CYMBALTA) [address] [...] patch onto | 30 | 2 | /16/20 | | | (LIDODERM) 5% | the [...] Martin MD | | | 2018 | visit | | [address] [place] | | | | | | [place], [place] | | | | | | [address] | | | | | | | | +--------+ + + + + | 03/07/ | Office | Cardiology | Chad Barnes, | | | 2017 | Visit | | [address] | | | | | | [place], | | | | | | [place] [address] | | | | | | [phone] | | | | | | | | +--------+ + + + + | 03/26/ | Office | Neurology | Yvonne, | | | 2017 | Visit | | [address] | | | | | [address] [place], | | | | | | [place] [address] | | | | | | [phone] | | | | | | | | +--------+ + + + + | 08/05/ | Office | Neurology | Benito Martin MD | | | 2018 | Visit | | [address] [place] | | | | | | [place], [place] | | | | | | [address] | | | | | | | [...] +--------+ + + + in this encounter Visit Diagnoses Not on filein this encounter Administered Medications + +--------+ + +------+------+ | Medication Order | MAR | Action | Dose | Rate | Site | | | Action | Date | | | | + +--------+ + +------+------+ | technetium TC-[id number] sestamibi | Given | 12/25/2017 | 30.6 | | | | (CARDIOLITE) injection 30.6 | | 12:23 | millicur | | | | millicurie 30.6 millicurie, | | PDT | ies | | | | Intravenous, ONCE PRN, Other, | | | | | | | Starting 12/25/17 at 1223, For | | | | | | | 1 dose, Nuclear Medicine | | | | | | + +--------+ + +------+------+ +---+---+ | | | +---+---+ in this encounter"
--- OUTSIDE RECORDS SUMMARY | ~2018-02-07 | XMS | Encounter Summary ---
Demographics + + + | Address | [address] | | | [place] [address] | + + + | Home Phone | | + + + | Preferred Language | Unknown | + + + | Marital Status | Single | + + + | Worship Affiliation | Unknown | + + + | Race | Unknown | + + + | Ethnic Group | Unknown | + + + Author + + + | Author | [facility] | | | and [place] | + + + | Organization | [facility] | | | and [...] Team Providers + +------+ + | Care Field Crop I Farmworker Name | Role | Phone | + +------+ + | Kiearn Phoenix DO | PCP | | + +------+ + Reason for Visit + + + | Reason | Comments | + + + | Medication Refill | | + + + Encounter Details +--------+--------+ + + + | Date | Type | Department | Care Team | Description | +--------+--------+ + + + | 01/20/ | Refill | [facility] | Benito Martin MD | Medication Refill | | 2017 | | HOSPITAL NEUROLOGY | [address] | | | | | CLINIC [address] | [place] | | | | | [address] [place], | [id number] | | | | | [place] [address] | | | | | | [phone] | | | +--------+--------+ + + + [...] [place] | | | | | | [address] | | | | | | | | +--------+ + + + + | 03/07/ | Office | Cardiology | Chad Barnes, | | | 2017 | Visit | | [address] [place] [address] [place] | | | | | | [place], | | | | | | [place] [address] | | | | | | [phone] | | | | | | | | +--------+ + + + + | 03/26/ | Office | Neurology | Yvonne, | | | 2017 | Visit | | [address] | | | | | [address] [place], | | | | | | [place] [address] | | | | | | [phone] | | | | | | | [...]
--- OUTSIDE RECORDS SUMMARY | ~2018-02-07 | XMS | Encounter Summary ---
Demographics + + + | Address | [address] | | | [place] [address] | + + + | Home Phone | | + + + | Preferred Language | Unknown | + + + | Marital Status | Single | + + + | Confucianist Affiliation | Unknown | + + + | Race | Unknown | + + + | Ethnic Group | Unknown | + + + Author + + + | Author | [facility] | | | and [place] | + + + | Organization | [facility] | | | and [place] [...] Team Providers + +------+ + | Care Food Mixer Name | Role | Phone | + [...] | | | [address] [place], | [id number] | | | | | [place] [address] | | | | | | [phone] | | | +--------+--------+ + + + [...] [place] | | | | | | [address] | | | | | | | | +--------+ + + + + | 03/07/ | Office | Cardiology | Chad Barnes, | | | 2017 | Visit | | [address] [place] [address] [address] | | | | | | [place], | | | | | | [place] [address] | | | | | | [phone] | | | | | | | | +--------+ + + + + | 03/26/ | Office | Neurology | Yvonne, | | | 2017 | Visit | | [address] | | | | | [address] [place], | | | | | | [place] [address] | | | | | | [phone] | | | | | | | [...]
--- OUTSIDE RECORDS SUMMARY | ~2018-02-07 | XMS | Encounter Summary ---
Demographics + + + | Address | [address] | | | [place] [address] | + + + | Home Phone [...] Author + + + | Author | [facility] | | | and [place] | + + + | Organization | [facility] | | | and [place] [...] Team Providers + +------+ + | Care Tube Machine Operator Helper Name | Role | Phone | + +------+ + | Kieran Phoenix DO | PCP | | + +------+ + Reason for Visit + + + | Reason | Comments | + + + | Appointment Question | | + + + Encounter Details +--------+ + + + + | Date | Type | Department | Care Team | Description | +--------+ + + + + | 12/11/ | Telephone | [facility] | Chad Barnes, | Appointment Question | | 2017 | | CARDIOLOGY [address] | [address] | | | | | [place], | [place], | | | | | [place] [address] | [place] [address] | | | | | [phone] | [phone] | | | | | | | [...] [place] | | | | | | [address] | | | | | | | | +--------+ + + + + | 03/07/ | Office | Cardiology | Chad Barnes, | | | 2017 | Visit | | [address] | | | | | | [place], | | | | | | [place] [address] | | | | | | [phone] | | | | | | | | +--------+ + + + + | 03/26/ | Office | Neurology | Yvonne, | | | 2017 | Visit | | [address] | | | | [address] [place], | | | | | | [place] [address] | | | | | | [phone] | | | | | | | [...]
--- OUTSIDE RECORDS SUMMARY | ~2018-02-07 | XMS | Clinical Summary ---
Demographics + + + | Address | [address] | | | [place] [address] | + + + | Home Phone | | + + + | Preferred Language | Unknown | + + + | Marital Status | Single | + + + | Voodoo Affiliation | JOURDAN | + + + | Race | or | + + + | Ethnic Group | Not or | + + + Author + + + | Author | [facility] | + + + | Organization | [facility] | + + + | Address | Unknown | + + + | Phone | Unavailable | + + + Support + + +---------+ + | Name | Relationship | Address | Phone | + + +---------+ + | CRISTIAN MORAN | ECON | Unknown | | + + +---------+ + Care Team Providers + +------+ + | Care Hobber Name | Role | Phone | + +------+ + | Kieran Phoenix MD | PP | Unavailable | + +------+ + Source Comments PIA is fully live on both EpicCare Ambulatory and EpicCare InPatient.[facility] Allergies + + + + + + | Active Allergy | Reactions | Severity | Noted | Comments | | | | | Date | | + + + + + + | Coffee (Coffea | Diarrhea, Nausea | | 08/01/19 | | | Arabica) | | | 12 | | + + + + + + | Diatrizoic Acid | Diarrhea, Nausea and | Medium | 03/22/20 | Gastrografin - | | | Vomiting | | 16 | Vomiting and | | | | | | diarrhea | + + + + + + | Dicyclomine | Unknown | | 03/22/20 | | | | | | 16 | | + + + + + + | Ondansetron | Unknown | | 03/22/20 | | | | | | 16 | | + + + + + + | Peg | Nausea and Vomiting | Medium | 03/22/20 | | | 3350-Electrolytes | | | 16 | | + + + + + + | Scopolamine | Unknown | High | 03/22/20 | loss of vision | | | | | 16 | | + + + + + + | Scopolamine Base | Unknown | | 03/22/20 | | | | | | 16 | | + + + + + + | Venom-Honey Bee | Anaphylaxis | High | 03/22/20 | | | | | | 16 | | + + + + + + Current Medications + + + +---------+------+------+-------+ | Prescription | Sig. | Disp. | Refills | Star | End | Statu | | | | | | t | Date | s | | | | | | Date | | | + + + +---------+------+------+-------+ | zonisamide 25 mg | Take 100 mg by mouth | | | | | Activ | | Oral Capsule | three times daily. | | | | | e | + + + +---------+------+------+-------+ | lamoTRIgine 100 mg | Take 200 mg by mouth | | | | | Activ | | Oral Tablet, Rapid | two times daily. | | | | | e | | Dissolve | | | | | | | + + + +---------+------+------+-------+ | ibuprofen 800 mg | Take 1 Tab by mouth | 90 Tab | 3 | 04/1 | | Activ | | Oral Tablet | every eight hours as | | | 3/20 | | e | | | needed. | | | 12 | | | + + + +---------+------+------+-------+ | oxyCODONE, | Take 1-2 Tabs by | 100 Tab | 0 | 04/1 | | Activ | | immediate release, | mouth every three | | | 3/20 | | e | | 10 mg Oral Tablet | hours as needed. | | | 12 | | | + + + +---------+------+------+-------+ | Miscellaneous | Please aid patient | 1 Each | 0 | 04/1 | | Activ | | [facility] | in obtaining a step | | | 20 | | e | | | stool with a tall | | | 12 | | | | | handle to support | | | | | | | | her weight. | | | | | | + + + +---------+------+------+-------+ | promethazine 25 mg | Take 1 Tab by mouth | 15 Tab | 1 | 04/2 | | Activ | | Oral Tablet | four times daily as | | | 3/20 | | e | | | needed for | | | 12 | | | | | nausea/vomiting. | | | | | | + + + +---------+------+------+-------+ | estradiol 2 mg | Take 2 mg by mouth | | | | | Activ | | oral tablet | once daily. | | | | | e | + + + +---------+------+------+-------+ | levothyroxine 150 | Take 150 mcg by | | | | | Activ | | mcg oral tablet | mouth before | | | | | e | | | breakfast. | | | | | | + + + +---------+------+------+-------+ | lidocaine 5 % | Apply 1 patch to | | | | | Activ | | topical adhesive | skin once daily. | | | | | e | | patch,medicated | Apply patch to most | | | | | | | | painful area; Patch | | | | | | | | may remain in place | | | | | | | | for up to 12 hours | | | | | | | | in any 24-hour | | | | | | | | period. | | | | | | + + + +---------+------+------+-------+ | lidocaine 5 % | Apply to affected | | | | | Activ | | topical ointment | area once daily as | | | | | e | | | needed. | | | | | | + + + +---------+------+------+-------+ | EPINEPHrine 0.3 | Inject 0.3 mg into | | | | | Activ | | mg/0.3 mL injection | the muscle (IM) as | | | | | e | | auto-injector | needed. Administer | | | | | | | | one dose every 10-20 | | | | | | | | minutes, no more | | | | | | | | than 2 doses without | | | | | | | | medical | | | | | | | | supervision. | | | | | | + + + +---------+------+------+-------+ | DULoxetine 30 mg | Take 30 mg by mouth | | | | | Activ | | oral capsule,delayed | once daily. | | | | | e | | release(DR/EC) | | | | | | | + + + +---------+------+------+-------+ | cholecalciferol, | Take 2,000 Units by | | | | | Activ | | Vitamin D3, 1,000 | mouth once daily. | | | | | e | | unit oral tablet | | | | | | | + + + +---------+------+------+-------+ Active Problems + + + | Problem | Noted Date | + + + | BMI 50.0-59.9, adult (HCC) | 06/25/2011 | + + + | Endometriosis | 06/25/2011 | + + + | Menometrorrhagia | 06/25/2011 | + + + | Former smoker | 06/25/2011 | + + + Family History + + +------+ + | Medical History | Relation | Name | Comments | + + +------+ + | Diabetes | Mother | | | + + +------+ + + +------+--------+ + | Relation | Name | Status | Comments | + +------+--------+ + | Mother | | | | + +------+--------+ + Social History + + + +--------+ + | Tobacco Use | Types | Packs/Day | Years | Date | | | | | Used | | + + + +--------+ + | Former Smoker | Cigarettes | 0.5 | 20 | Quit: 06/24/2009 | + + + +--------+ + + +---+---+---+ | Smokeless Tobacco: | | | | | Never Used | | | | + +---+---+---+ + + | Tobacco Cessation: Counseling Given: Yes | + + + + +---------+ + | Alcohol Use | Drinks/We | oz/Week | Comments | | | ek | | | + + +---------+ + | Yes | | | | + + +---------+ + + + + | Sex Assigned at | Date Recorded | | | | + + + | Not on file | | + + + Last Filed Vital Signs + + + + | Vital Sign | Reading | Time Taken | + + + + | Blood Pressure | 140/90 | 06/06/2017 2:32 PM PST | + + + + | Pulse | 86 | 06/06/2017 2:32 PM PST | + + + + | Temperature | 37.2 C (98.9 F) | 06/06/2017 2:32 PM PST | + + + + | Respiratory Rate | 14 | 06/06/2017 2:32 PM PST | + + + + | Oxygen Saturation | 97% | 03/22/2016 12:43 PM PST | + + + + | Inhaled Oxygen | - | - | | Concentration | | | + + + + | Weight | 140.6 kg (310 lb) | 06/06/2017 2:32 PM PST | + + + + | Height | 149.9 cm (4' 11") | 06/06/2017 2:32 PM PST | + + + + | Body Mass Index | 62.61 | 06/06/2017 2:32 PM PST | + + + + Plan of Treatment + + + + + | Health Maintenance | Due Date | Last Done | Comments | + + + + + | Influenza (Flu) | | | | | vaccination (#1) | 8 | | | + + + + + Results Not on filefrom Last 3 Months Insurance + +--------+ +--------+ + + | Payer | Benefi | Subscriber | Type | Phone | Address | | | t Plan | ID | | | | | | / | | | | | | | Group | | | | | + +--------+ +--------+ + + | MEDICARE | MEDICA | xxxxxxxxxx | Medica | +- | [address] | | | RE A & | | re | [phone] | [place] [address] | | | B | | | | | + +--------+ +--------+ + + | 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 MEDICAID | 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 WORKER | xxxxxxxx | Medica | | | | | [place] | | id | | | | | [place] | | | | | + +--------+ +--------+ + + | [facility] | [facility] | xxxxxxxxx | Agency | | | | SERVICE | | | | | | | | HEALTH | | | | | | | | | | | | | | SERVIC | | | | | | | E | | | | | + +--------+ +--------+ + + + +--------+ +--------+ + + | Guarantor Name | Accoun | Relation to | Date | Phone | Billing Address | | | t Type | Patient | of | | | | | | | | | | + +--------+ +--------+ + + | ALIN MORAN | Person | Self [birth year] Home: | [address] | | | al/Fam | | 1971 | [phone] | [place] [address] | | | caro | | | [phone] | | + +--------+ +--------+ + + | ALIN MORAN | Agency | Self | [birth year] | Home: | [address] [place] [address] | | | | | 1971 | [phone] | [place] [address] | | | | | | [phone] | | + +--------+ +--------+ + +
--- OUTSIDE RECORDS SUMMARY | ~2018-02-07 | XMS | Encounter Summary ---
Demographics + + + | Address | [address] | | | [place] [address] | + + + | Home Phone | | + + + | Preferred Language | Unknown | + + + | Marital Status | Single | + + + | Confucianism Affiliation | Unknown | + + + | Race | Unknown | + + + | Ethnic Group | Unknown | + + + Author + + + | Author | [facility] | | | and Niranjanana | + + + | Organization | [facility] | | | and [place] [...] Team Providers + +------+ + | Care Ingot Supervisor Name | Role | Phone | + [...] Description | +--------+--------+ + + + | 12/30/ | Refill | [facility] | Benito Martin MD | Medication Refill | | 2017 | | [facility] | [address] | | | | | CLIN[address] | [place] | | | | | [address] [place], | [id number] | | | | | [place] [address] | | | | | | [phone] | | | +--------+--------+ + + + [...] [place] | | | | | | [address] | | | | | | | | +--------+ + + + + | 03/07/ | Office | Cardiology | Chad Barnes, | | | 2017 | Visit | | [address] [place] [address] [place] | | | | | | [place], | | | | | | [place] [address] | | | | | | [phone] | | | | | | | | +--------+ + + + + | 03/26/ | Office | Neurology | Yvonne, | | | 2017 | Visit | | [address] | | | | | [address] [place], | | | | | | [place] [address] | | | | | | [phone] | | | | | | | [...]
--- OUTSIDE RECORDS SUMMARY | ~2018-02-07 | XMS | Encounter Summary ---
Demographics + + + | Address | [address] | | | [place] [address] | + + + | Home Phone | | + + + | Preferred Language | Unknown | + + + | Marital Status | Single | + + + | Holiness Affiliation | Unknown | + + + | Race | Unknown | + + + | Ethnic Group | Unknown | + + + Author + + + | Author | [facility] | | | and Niranjanana | + + + | Organization | [facility] | | | and [place] [...] Providers + +------+ + | Care Unix Consultant Name | Role | Phone | + [...] Description | +--------+--------+ + + + | 12/19/ | Refill | [facility] | Benito Martin MD | Medication Refill | | 2017 | | HOSPITAL [facility] | [address] | | | | | CLINIC [address] | [place] | | | | | [address] [place], | [id number] | | | | | [place] [address] | | | | | | [phone] | | | +--------+--------+ + + + [...] [place] | | | | | | [address] | | | | | | | | +--------+ + + + + | 03/07/ | Office | Cardiology | Chad Barnes, | | | 2017 | Visit | | [address] [place] [address] [place] | | | | | | [place], | | | | | | [place] [address] | | | | | | [phone] | | | | | | | | +--------+ + + + + | 03/26/ | Office | Neurology | Yvonne, | | | 2017 | Visit | | [address] | | | | | [address] [place], | | | | | | [place] [address] | | | | | | [phone] | | | | | | | [...]
--- OUTSIDE RECORDS SUMMARY | ~2018-02-07 | XMS | Encounter Summary ---
Demographics + + + | Address | [address] | | | [place] [address] | + + + | Home Phone | | + + + | Preferred Language | Unknown | + + + | Marital Status | Single | + + + | Denominational Affiliation | Unknown | + + + | Race | Unknown | + + + | Ethnic Group | Unknown | + + + Author + + + | Author | [facility] | | | and [place] | + + + | Organization | [facility] | | | and [...] Team Providers + +------+ + | Care Architectural Associate Name | Role | Phone | + +------+ + | Kieran Phoenix DO | PCP | | + +------+ + Reason for Visit + + + | Reason | Comments | + + + | Diagnostic Order | | + + + Encounter Details +--------+ + + + + | Date | Type | Department | Care Team | Description | +--------+ + + + + | 12/05/ | Telephone | [facility] | Chad Barnes, | Diagnostic Order | | 2017 | | CARDIOLOGY [address] | MD [address] [place] | | | | | [place], | [place], | | | | | [place] [address] | [place] [address] | | | | | [phone] | [phone] | | | | | | | [...] [place] | | | | | | [address] | | | | | | | | +--------+ + + + + | 03/07/ | Office | Cardiology | Chad Barnes, | | | 2017 | Visit | | [address] | | | | | | [place], | | | | | | [place] [address] | | | | | | [phone] | | | | | | | | +--------+ + + + + | 03/26/ | Office | Neurology | Yvonne, | | | 2017 | Visit | | [address] | | | | | [address] [place], | | | | | | [place] [address] | | | | | | [phone] | | | | | | | | +--------+ + + + + | 08/05/ | Office | Neurology | Benito Martin MD | | | 2018 | Visit | | [address] | | | | | | [place] | | | | | | [address] | | | | | | | | +--------+ + + + + as of this encounter Visit Diagnoses Not on filein this encounter"
--- OUTSIDE RECORDS SUMMARY | ~2018-02-07 | XMS | Encounter Summary ---
Demographics + + + | Address | [address] | | | [place] [address] | + + + | Home Phone | | + + + | Preferred Language | Unknown | + + + | Marital Status | Single | + + + | Church Affiliation | Unknown | + + + | Race | Unknown | + + + | Ethnic Group | Unknown | + + + Author + + + | Author | [facility] | | | and [place]ir[place] | + + + | Organization | [facility] | | | and [...] Team Providers + +------+ + | Care Geoscience Technician Name | Role | Phone | [...] pain | [address] | | | | | Abnormal EKG | [address] | [place], | | | | | Procedures | [place], | [place] | | | | | [place] | [place] [address] | [address] | | | | | Stress Test | Phone: | Phone: | | | | | | [phone] | [phone] | | | | | (Vasodilator | Fax: | Fax: | | | | | ) CHG | [phone] | [phone] | | | | | MYOCARDIAL | | | | | | | SPECT | | | | | | | MULTIPLE | | | | | | | STUDIES MS | | | | | | | CV STRS TST | | | | | | | XERS&/OR RX | | | | | | | CONT ECG W/O | | | | | | | I&R MS | | | | | | | [...] pain | [address] | [address] | | | | | Abnormal EKG | [address] | [place], | | | | | Procedures | [place], | [place] | | | | | [place] | [place] [address] | [address] | | | | | Stress Test | Phone: | Phone: | | | | | | [phone] | [phone] | | | | | (Vasodilator | Fax: | Fax: | | | | | ) CHG | [phone] | [phone] | | | | | MYOCARDIAL | | | | | | | SPECT | | | | | | | MULTIPLE | | | | | | | STUDIES MS | | | | | | | CV STRS TST | | | | | | | XERS&/OR RX | | | | | | | CONT ECG W/O | | | | | | | I&R MS | | | | | | | [...] + + | / | Hospital | [facility] | Chad Barnes, | Other chest pain; | | 2018 | Encounter | [facility] | MD [address] | Abnormal EKG | | | | MEDICINE [address] | [address] [place], | | | | | [place], | [place] [address] | | | | | [place] [address] | [phone] | | | | | [phone] | | | | | | | Wind Turbine Engineer, Ws | | +--------+ + + + [...] [place] | | | | | | [address] | | | | | | | | +--------+ + + + + | 03/07/ | Office | Cardiology | Chad Barnes, | | | 2017 | Visit | | [address] | | | | | | [place], | | | | | | [place] [address] | | | | | | [phone] | | | | | | | | +--------+ + + + + | 03/26/ | Office | Neurology | Yvonne, | | | 2017 | Visit | | [address] | [address] [place], | | | | | | [place] [address] | | | | | | [phone] | | | | | | | | +--------+ + + + + | 08/05/ | Office | Neurology | Benito Martin MD | | | 2019 | Visit | | [address] | | | | | | [place] | | | | | | [address] | | | | | | | [...]
--- OUTSIDE RECORDS SUMMARY | ~2018-02-07 | XMS | Encounter Summary ---
Demographics + + + | Address | [address] | | | [place] [address] | + + + | Home Phone | | + + + | Preferred Language | Unknown | + + + | Marital Status | Single | + + + | Faith Affiliation | Unknown | + + + | Race | Unknown | + + + | Ethnic Group | Unknown | + + + Author + + + | Author | [facility] | | | and [place]ir[place] | + + + | Organization | [facility] | | | and [place] [...] Team Providers + +------+ + | Care Terra Cotta Mold Maker Name | Role | Phone | + [...] | | | [address] [place] [place], | [id number] | | | | | [place] [address] | | | | | | [phone] | | | +--------+--------+ + + + [...] [place] | | | | | | [address] | | | | | | | | +--------+ + + + + | 03/07/ | Office | Cardiology | Chad Barnes, | | | 2017 | Visit | | [address] [place] [address] [place] | | | | | | [place], | | | | | | [place] [address] | | | | | | [phone] | | | | | | | | +--------+ + + + + | 03/26/ | Office | Neurology | Yvonne, | | | 2017 | Visit | | [address] | | | | | [address] [place], | | | | | | [place] [address] | | | | | | [phone] | | | | | | | [...]
--- OUTSIDE RECORDS SUMMARY | ~2018-02-07 | XMS | Clinical Summary ---
Demographics + + + | Address | [address] | | | [place] [address] | + + + | Home Phone | | + + + | Preferred Language | Unknown | + + + | Marital Status | Single | + + + | Moravian Affiliation | JOURDAN | + + + [...] Team Providers + +------+ + | Care Director Of Math Name | Role | Phone | + +------+ + | Kieran Phoenix MD | PP | Unavailable | + +------+ + Source Comments PIA is fully live on both EpicCare Ambulatory and EpicCare InPatient.[facility] Allergies + + + + + [...] | re | [address] | [place] [address] | | | B | | | | | + +--------+ +--------+ + + | [employer]CH[employer] 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
--- OUTSIDE RECORDS SUMMARY | ~2018-02-07 | XMS | Encounter Summary ---
Demographics + + + | Address | [address] | | | [place] [address] | + + + | Home Phone | | + + + | Preferred Language | Unknown | + + + | Marital Status | Single | + + + | Adventist Affiliation | Unknown | + + + | Race | Unknown | + + + | Ethnic Group | Unknown | + + + Author + + + | Author | [facility] | | | and [place]iranjanana | + + + | Organization | [facility] | | | and [place] [...] Team Providers + +------+ + | Care Machine Featheredger And Reducer Name | Role | Phone | + [...] + + | 11/18/ | Telephone | [facility] | Benito Martin MD | Medication Refill | | 2018 | | HOSPITAL NEUROLOGY | [address] | | | | | CLIN[address] | [place], [place] | | | | | [address] [place], | [address] | | | | | [place] [address] | | | | | | [phone] | | | +--------+ + + + [...] [place] | | | | | | [address] | | | | | | | | +--------+ + + + + | 03/07/ | Office | Cardiology | Chad Barnes, | | | 2017 | Visit | | [address] [facility] | | | | | | [place], | | | | | | [place] [address] | | | | | | [phone] | | | | | | | | +--------+ + + + + | 03/26/ | Office | Neurology | Yvonne, | | | 2017 | Visit | | [address] | | | | | [address] [place], | | | | | | [place] [address] | | | | | | [phone] | | | | | | | | +--------+ + + + + | 08/05/ | Office | Neurology | Benito Martin MD | | | 2018 | Visit | | [address] | | | | | | [place] | | | | | | [address] | | | | | | | | +--------+ + + + + as of this encounter Visit Diagnoses Not on filein this encounter"
--- OUTSIDE RECORDS SUMMARY | ~2018-02-07 | XMS | Encounter Summary ---
Demographics + + + | Address | [address] | | | [place] [address] | + + + | Home Phone | | + + + | Preferred Language | Unknown | + + + | Marital Status | Single | + + + | Yarsani Affiliation | Unknown | + + + | Race | Unknown | + + + | Ethnic Group | Unknown | + + + Author + + + | Author | [facility] | | | and [place]iranjanana | + + + | Organization | [facility] | | | and [place] [...] Team Providers + +------+ + | Care Green Material Value Added Assessor Name | Role | Phone | + [...] [address] | | | | | [place] [address] | | | | | | [phone] | | | +--------+ + + + [...] [place] | | | | | | [address] | | | | | | | | +--------+ + + + + | 03/07/ | Office | Cardiology | Chad Barnes, | | | 2017 | Visit | | [address] [facility] | | | | | | [place], | | | | | | [place] [address] | | | | | | [phone] | | | | | | | | +--------+ + + + + | 03/26/ | Office | Neurology | Yvonne, | | | 2017 | Visit | | [address] | | | | | [address] [place], | | | | | | [place] [address] | | | | | | [phone] | | | | | | | | +--------+ + + + + | 08/05/ | Office | Neurology | Benito Martin MD | | | 2018 | Visit | | [address] | | | | | | [place] | | | | | | [address] | | | | | | | | +--------+ + + + + as of this encounter Visit Diagnoses Not on filein this encounter"
--- OUTSIDE RECORDS SUMMARY | ~2018-02-07 | XMS | Encounter Summary ---
Demographics + + + | Address | [address] | | | [place] [address] | + + + | Home Phone | | + + + | Preferred Language | Unknown | + + + | Marital Status | Single | + + + | Mormon Affiliation | Unknown | + + + | Race | Unknown | + + + | Ethnic Group | Unknown | + + + Author + + + | Author | [facility] | | | and Niranjanana | + + + | Organization | [facility] | | | and [...] Team Providers + +------+ + | Care Maintenance Electrician Name | Role | Phone | + [...] pain | [address] | | | | | Abnormal EKG | [address] | [place], | | | | | Procedures | [place], | [place] | | | | | [place] | [place] [address] | [address] | | | | | Stress Test | Phone: | Phone: | | | | | | [phone] | [phone] | | | | | (Vasodilator | Fax: | Fax: | | | | | ) CHG | [phone] | [phone] | | | | | MYOCARDIAL | | | | | | | SPECT | | | | | | | MULTIPLE | | | | | | | STUDIES IA | | | | | | | CV STRS TST | | | | | | | XERS&/OR RX | | | | | | | CONT ECG W/O | | | | | | | I&R IA | | | | | | | [...] | | | | | pectoris, | [address] | [address] | | | | | unspecified | [facility] | [address] | | | | | ([facility]) Other | WAY | [place], | | | | | chest pain | [place], | [place] [address] | | | | | Procedures | [place] [address] | Phone: | | | | | FUP | Phone: | [phone] | | | | | | [phone] | Fax: | | | | | | Fax: | [phone] | | | | | | [phone] | | +--------+--------+ + + + + Encounter Details +--------+---------+ + + + | Date | Type | Department | Care Team | Description | +--------+---------+ + + + | 12/02/ | Office | [facility] | Marilia Barnes, | Other chest pain | | 2018 | Visit | CARDIOLOGY [address] | (Primary Dx); | | | | [address] [place], | [place], | Abnormal EKG | | | | [place] [address] | [place] [address] | | | | | [phone] | [phone] | | | | | | | [...] is being seen by a surgeon at [facility] who planned to perform laparoscopic exploratory. Tod [...] RESULTS reviewed during visit today primarily from [facility]: LIPID Lab Results Component Value Date LDLEX [...] steadily. She has 2 ER visit at [facility] where the initial workup was negative. B. [...] She is in a class I of [employer] fu nctional class. There is [...] reduction. 4. Follow-up in 2 months with [facility] I, Farzana Salgado, am acting as a scribe on behalf of, and in the presence of Marilia hightower MD. I have reviewed and edited this note. Farzana Salgado [employer] 12/02/2017 I, Marilia Barnes MD, personally performed the services described in this documentation, as scribed in my presence and it is both accurate and complete. Farzana Salgado, Med Ass t 12/02/2017 15:42 Electronically signed by: Marilia Barnes MD [facility] 12/02/2017 Portions of this chart may have been created with Ning voice recognition software. Occasi onal wrong-word or [...] [place] | | | | | | [address] | | | | | | | | +--------+ + + + + | 03/07/ | Office | Cardiology | Marilia Barnes, | | | 2017 | Visit | | [address] | | | | | | [place], | | | | | | [place] [address] | | | | | | [phone] | | | | | | | | +--------+ + + + + | 03/26/ | Office | Neurology | Yvonne, | | | 2017 | Visit | | [address] | | | | | [address] [place], | | | | | | [place] [address] | | | | | | [phone] | | | | | | | | +--------+ + + + + | 08/05/ | Office | Neurology | Benito Martin MD | | | 2019 | Visit | | [address] | | | | | | [place] | | | | | | [address] | | | | | | | [...] ARMENDARIZ, MARILIA | | | | | ([id number]) on 12/02/2017 | | | | | [...]
--- OUTSIDE RECORDS SUMMARY | ~2018-02-07 | XMS | Encounter Summary ---
Demographics + + + | Address | [address] | | | [place] [address] | + + + | Home Phone | | + + + | Preferred Language | Unknown | + + + | Marital Status | Single | + + + | Hoahaoism Affiliation | Unknown | + + + | Race | Unknown | + + + | Ethnic Group | Unknown | + + + Author + + + | Author | [facility] | | | and Niranjanana | + + + | Organization | [facility] | | | and [place] [...] Providers + +------+ + | Care Assistant Customer Service Manager Name | Role | Phone | [...] + + | 12/25/ | Hospital | [facility] | Chad Barnes, | | | 2018 | Encounter | MED CTR NUCLEAR | [address] | | | | | MEDICINE [address] | [address], | | | | | [place], | [place] [address] | | | | | [place] [address] | [phone] | | | | | [phone] | | | +--------+ + + + [...] [place] | | | | | | [address] | | | | | | | | +--------+ + + + + | 03/07/ | Office | Cardiology | Chad Barnes, | | | 2017 | Visit | | [address] | | | | | | [place], | | | | | | [place] [address] | | | | | | [phone] | | | | | | | | +--------+ + + + + | 03/26/ | Office | Neurology | Yvonne, | | | 2017 | Visit | | [address] | | | | | | [address] [place], | | | | | | [place] [address] | | | | | | [phone] | | | | | | | | +--------+ + + + + | 08/05/ | Office | Neurology | Benito Martin MD | | | 2018 | Visit | | [address] [place] | | | | | | [place], [place] | | | | | | [address] | | | | | | | [...]
--- OUTSIDE RECORDS SUMMARY | ~2018-02-07 | XMS | Clinical Summary ---
Demographics + + + | Address | [address] | | | [place] [address] | + + + | Home Phone | | + + + | Preferred Language | Unknown | + + + | Marital Status | Unknown | + + + | Tenriism Affiliation | Unknown | + + + | Race | Unknown | + + + | Ethnic Group | Unknown | + + + Author + + + | Author | [facility] [employer] | + + + | Organization | [facility] [address] | + + + | Address [...] Team Providers + +------+ + | Care Dental Ceramist Helper Name | Role | Phone | [...] | | | Activ | | (DRISDOL) [id number] | mouth once a week. | | [...] +------+-------+---------+ | [employer] | [employer]-NET | [id number] | | | | | | WORK [...] | Self | [birth year] | Home: | [address] [place] [address] | | | al/Fam | | [phone] | [phone] [place] | | | caro | | | [phone] | [phone] | + +--------+ +--------+ + +"
--- OUTSIDE RECORDS SUMMARY | ~2018-02-07 | XMS | Encounter Summary ---
Demographics + + + | Address | [address] | | | [place] [address] | + + + | Home Phone | | + + + | Preferred Language | Unknown | + + + | Marital Status | Single | + + + | Cheondoism Affiliation | Unknown | + + + | Race | Unknown | + + + | Ethnic Group | Unknown | + + + Author + + + | Author | [facility] | | | and Niranjanana | + + + | Organization | [facility] | | | and [place] [...] Team Providers + +------+ + | Care Circulation Analyst Name | Role | Phone | + [...] [id number] | | | | | [place] [address] | | | | | | [phone] | | | +--------+ + + + [...] [place] | | | | | | [address] | | | | | | | | +--------+ + + + + | 03/07/ | Office | Cardiology | Chad Barnes, | | | 2017 | Visit | | [address] | | | | | | [place], | | | | | | [place] [address] | | | | | | [phone] | | | | | | | | +--------+ + + + + | 03/26/ | Office | Neurology | Yvonne, | | | 2017 | Visit | | [address] | | | | | [address] [place], | | | | | | [place] [address] | | | | | | [phone] | | | | | | | [...]
--- OUTSIDE RECORDS SUMMARY | ~2018-02-07 | XMS | Encounter Summary ---
Demographics + + + | Address | [address] | | | [place] [address] | + + + | Home Phone | | + + + | Preferred Language | Unknown | + + + | Marital Status | Single | + + + | Christian Affiliation | Unknown | + + + | Race | Unknown | + + + | Ethnic Group | Unknown | + + + Author + + + | Author | [facility] | | | and Niranjanana | + + + | Organization | [facility] | | | and [...] Team Providers + +------+ + | Care Equipment Engineer Name | Role | Phone | + [...] | | | [address] [place], | [id number] | | | | | [place] [address] | | | | | | [phone] | | | +--------+--------+ + + + [...] [place] | | | | | | [address] | | | | | | | | +--------+ + + + + | 03/07/ | Office | Cardiology | Chad Barnes, | | | 2017 | Visit | | [address] [place] [address] [place] | | | | | | [place], | | | | | | [place] [address] | | | | | | [phone] | | | | | | | | +--------+ + + + + | 03/26/ | Office | Neurology | Yvonne, | | | 2017 | Visit | | [address] | | | | | [address] [place], | | | | | | [place] [address] | | | | | | [phone] | | | | | | | [...]
--- OUTSIDE RECORDS SUMMARY | ~2018-02-07 | XMS | Encounter Summary ---
Demographics + + + | Address | [address] | | | [place] [address] | + + + | Home Phone | | + + + | Preferred Language | Unknown | + + + | Marital Status | Single | + + + | Pentecostal Affiliation | Unknown | + + + | Race | Unknown | + + + | Ethnic Group | Unknown | + + + Author + + + | Author | [facility] | | | and Niranjanana | + + + | Organization | [facility] | | | and [...] | + + +---------+ + | Zoraida Horton/Charlse | ECON | Unknown | | + + +---------+ + Care Team Providers + +------+ + | Care Video Photographer Name | Role | Phone | + [...] | | | [address] [place] [place], | [id number] | | | | | [place] [address] | | | | | | [phone] | | | +--------+--------+ + + + [...] [place] | | | | | | [address] | | | | | | | | +--------+ + + + + | 03/07/ | Office | Cardiology | Chad Barnes, | | | 2017 | Visit | | [address] [place] [address] [place] | | | | | | [place], | | | | | | [place] [address] | | | | | | [phone] | | | | | | | | +--------+ + + + + | 03/26/ | Office | Neurology | Yvonne, | | | 2017 | Visit | | [address] | | | | | [address] [place], | | | | | | [place] [address] | | | | | | [phone] | | | | | | | [...]
--- OUTSIDE RECORDS SUMMARY | ~2018-02-07 | XMS | Encounter Summary ---
Demographics + + + | Address | [address] | | | [place] [address] | + + + | Home Phone | | + + + | Preferred Language | Unknown | + + + | Marital Status | Single | + + + | Restoration Affiliation | Unknown | + + + | Race | Unknown | + + + | Ethnic Group | Unknown | + + + Author + + + | Author | [facility] | | | and Niranjanana | + + + | Organization | [facility] | | | and [place] [...] Team Providers + +------+ + | Care Board Worker Name | Role | Phone | + [...] | | | [address] [place] [place], | [id number] | | | | | [place] [address] | | | | | | [phone] | | | +--------+--------+ + + + [...] [place] | | | | | | [address] | | | | | | | | +--------+ + + + + | 03/07/ | Office | Cardiology | Chad Barnes, | | | 2017 | Visit | | [address] [place] [address] [place] | | | | | | [place], | | | | | | [place] [address] | | | | | | [phone] | | | | | | | | +--------+ + + + + | 03/26/ | Office | Neurology | Yvonne, | | | 2017 | Visit | | [address] | | | | | [address] [place], | | | | | | [place] [address] | | | | | | [phone] | | | | | | | [...]
--- OUTSIDE RECORDS SUMMARY | ~2018-02-07 | XMS | Encounter Summary ---
Demographics + + + | Address | [address] | | | [place] [address] | + + + | Home Phone | | + + + | Preferred Language | Unknown | + + + | Marital Status | Single | + + + | Christianity Affiliation | Unknown | + + + | Race | Unknown | + + + | Ethnic Group | Unknown | + + + Author + + + | Author | [facility] | | | and Niranjanana | + + + | Organization | [facility] | | | and [place] [...] Team Providers + +------+ + | Care Athletic Field Custodian Name | Role | Phone | + [...] + + | 12/11/ | Telephone | [facility] | Chad Barnes, | Appointment Question | | 2017 | | CARDIOLOGY [address] | [address] | | | | | [place], | [place], | | | | | [place] [address] | [place] [address] | | | | | [phone] | [phone] | | | | | | | [...] [place] | | | | | | [address] | | | | | | | | +--------+ + + + + | 03/07/ | Office | Cardiology | Chad Barnes, | | | 2017 | Visit | | [address] | | | | | | [place], | | | | | | [place] [address] | | | | | | [phone] | | | | | | | | +--------+ + + + + | 03/26/ | Office | Neurology | Yvonne, | | | 2017 | Visit | | [address] | | | | | | [address] [place], | | | | | | [place] [address] | | | | | | [phone] | | | | | | | [...]
--- OUTSIDE RECORDS SUMMARY | ~2018-02-07 | XMS | Encounter Summary ---
Demographics + + + | Address | [address] | | | [place] [address] | + + + | Home Phone | | + + + | Preferred Language | Unknown | + + + | Marital Status | Single | + + + | Jain Affiliation | Unknown | + + + | Race | Unknown | + + + | Ethnic Group | Unknown | + + + Author + + + | Author | [facility] | | | and Niranjanana | + + + | Organization | [facility] | | | and [place] [...] Team Providers + +------+ + | Care Hand Funnel Coater Name | Role | Phone | + [...] [address] | | | | | [place] [address] | | | | | | [phone] | | | +--------+ + + + [...] [place] | | | | | | [address] | | | | | | | | +--------+ + + + + | 03/07/ | Office | Cardiology | Chad Barnes, | | | 2017 | Visit | | [address] [facility] | | | | | | [place], | | | | | | [place] [address] | | | | | | [phone] | | | | | | | | +--------+ + + + + | 03/26/ | Office | Neurology | Yvonne, | | | 2017 | Visit | | [address] | | | | | [address] [place], | | | | | | [place] [address] | | | | | | [phone] | | | | | | | | +--------+ + + + + | 08/05/ | Office | Neurology | Benito Martin MD | | | 2018 | Visit | | [address] | | | | | | [place] | | | | | | [address] | | | | | | | | +--------+ + + + + as of this encounter Visit Diagnoses Not on filein this encounter"
--- OUTSIDE RECORDS SUMMARY | ~2018-02-07 | XMS | Encounter Summary ---
Demographics + + + | Address | [address] | | | [place] [address] | + + + | Home Phone | | + + + | Preferred Language | Unknown | + + + | Marital Status | Single | + + + | Taoism Affiliation | Unknown | + + + | Race | Unknown | + + + | Ethnic Group | Unknown | + + + Author + + + | Author | [facility] | | | and Niranjanana | + + + | Organization | [facility] | | | and [...] Team Providers + +------+ + | Care Electro Mechanical Technologist Name | Role | Phone | + [...] + + | 12/05/ | Telephone | [facility] | Chad Barnes, | Diagnostic Order | | 2017 | | CARDIOLOGY [address] | MD [address] | | | | | [place], | [place], | | | | | [place] [address] | [place] [address] | | | | | [phone] | [phone] | | | | | | | [...] [place] | | | | | | [address] | | | | | | | | +--------+ + + + + | 03/07/ | Office | Cardiology | Chad Barnes, | | | 2017 | Visit | | [address] | | | | | | [place], | | | | | | [place] [address] | | | | | | [phone] | | | | | | | | +--------+ + + + + | 03/26/ | Office | Neurology | Yvonne, | | | 2017 | Visit | | [address] | | | | | [address] [place], | | | | | | [place] [address] | | | | | | [phone] | | | | | | | | +--------+ + + + + | 08/05/ | Office | Neurology | Benito Martin MD | | | 2018 | Visit | | [address] | | | | | | [place] | | | | | | [address] | | | | | | | | +--------+ + + + + as of this encounter Visit Diagnoses Not on filein this encounter"
[~2018-02-07 02:03] MED LIST: BACLOFEN10 MG PO; CALCIUM 600 +1 EAC1 PO; CALCIUM 600 +1 EAC2 PO; CELEBREX200 MG PO; DILAUDID2 MG PO; ENDOCET 7.5-321 EACH PO; EPIPEN 2-P0.3 MG/0.3 IM; ESTRADIOL2 MG PO; FROVA2.5 MG PO; IBUPROFEN800 MG PO; LAMOTRIGINE100 MG PO; LEVOTHYROXINE200 MCG PO; LIDOCAINE700 MG TOP; MOBIC15 MG PO; NEURONTIN300 MG PO; NORCO 5-325 TA1 EACH PO; NORTRIPTYLINE H10 MG PO; PEPCID20 MG PO; PERCOCET 10-321 EACH PO; PERCOCET 5-3251 EACH PO; PHENERGAN25 MG/1 M1 PO; PREMARIN0.3 MG PO; PROMETHAZINE HC25 M1 PO; REGLAN10 MG PO; SYNTHROID175 MCG PO; TRANSDERM-SCOP1 EA TD; ULTRAM50 MG PO; VITAMIN D1000 UNI1 PO; ZOFRAN4 MG PO; ZONEGRAN25 MG PO; ZONISAMIDE50 MG PO; [UNRECOGNIZED DRUG - OTHER] TP
[2018-02-07] MEDS ORDERED: SYNTHROID100 MCG PO (02:24)
[2018-02-07] MEDS ORDERED: SYNTHROID88 MCG PO (02:25)
[2018-02-07] MEDS ORDERED: D-20002000 UNIT PO (02:27)
[2018-02-07] MEDS ORDERED: OXYCODONE PO (02:27)
[2018-02-07] MEDS ORDERED: TIZANIDINE HCL4 MG PO (02:28)
[2018-02-07] MEDS ORDERED: LIDOCAINE PAIN1 EACH TOP (02:29)
[2018-02-07] MEDS ORDERED: LIDOCAINE5 GM TOP (02:30)
[2018-02-07] MEDS ORDERED: KETALAR100 MG/1 M INJ (02:31)
[2018-02-07] MEDS ORDERED: PROMETHAZINE HC25 M1 PO (05:57)
[2018-02-07] MEDS ORDERED: FLOMAX0.4 MG PO (05:57)
[2018-02-07] MEDS ORDERED: PERCOCET 5-3251 EACH PO (05:57)
== END 2018-02-07 06:23 | disposition home or self-care (01) ==
LOC: ED 02:03
DX: N13.2 Hydronephrosis with renal and ureteral calculous obstruction (principal); E03.9 Hypothyroidism, unspecified; Z87.891 Personal history of nicotine dependence; Z88.8 Allergy status to other drugs, medicaments and biological substances; Z91.030 Bee allergy status; Z79.899 Other long term (current) drug therapy
CPT/HCPCS: 74177; 80053; 81001; 83690; 85025; 96374; 96375; 96376; 99284; J1170; J1885; J2550; Q9967

== ENCOUNTER 2023-10-28 03:37 | Emergency (ER) | payer MEDICARE, OTHER ==
[~2023-10-28] VITALS: Ht 149.9 cm; Wt 144.8 kg
[~2023-10-28 03:37] MED LIST changes: +D-20002000 UNIT PO; +FLOMAX0.4 MG PO; +INTRINSI B12-F1 EACH PO; +KETALAR100 MG/1 M INJ; +KETOROLAC TROME10 MG PO; +KETOROLAC15 MG/1 M2 IM; +LAMICTAL200 MG PO; +LIDOCAINE PAIN1 EACH TOP; +LIDOCAINE5 GM TOP; +LYRICA100 MG PO; +MYRBETRIQ25 MG PO; +NARCAN4 MG; +OXYBUTYNIN CHLOR5 MG PO; +OXYCODONE HCL10 MG PO; +OXYCODONE PO; +SYMBICORT 16010.2 GM INH; +SYNTHROID100 MCG PO; +SYNTHROID88 MCG PO; +TIZANIDINE HCL4 MG PO; +VITAMIN D3125 MC1 PO
--- OUTSIDE RECORDS SUMMARY | 2023-10-28 03:38 | XMS ---
PreManage Notification: WILBERT MORAN [employer] Producer Events No recent Security Events currently on file CRITERIA MET - PDMP CARE PROVIDERS FERNANDO DARBY [facility] Current PHONE: [phone] Paola has no Care Guidelines for this patient. Adina VISIT COUNT (12 MO.) 2 MELISSA Holman TOTAL 2 NOTE: Visits indicate total known visits. ED/UCC VISIT TRACKING (12 MO.) 10/28/2023 03:37 MELISSA Cole [place] TYPE: Emergency COMPLAINT: - STROKE SYMPTOMS 07/26/2023 14:15 MELISSA Cole [place] TYPE: Emergency COMPLAINT: - ABNORMAL LABS DIAGNOSES: - Abnormal finding of blood chemistry, unspecified - Allergy status to other drugs, medicaments and biological substances - Bee allergy status - Elevated white blood cell count, unspecified - Hormone replacement therapy - Personal history of nicotine dependence INPATIENT VISIT TRACKING (12 MO.) No inpatient visits to display in this time frame [email or web address]
[2023-10-28] MEDS ORDERED: LORazepam 2 MG/ML VIAL IV ONE (04:00)
[2023-10-28] MEDS ORDERED: diphenhydrAMINE HCL 50 MG/ML VIAL IV ONE (04:00)
[2023-10-28] MEDS ORDERED: LACTATED RINGER'S 1,000 ML IV ONE ×2 (04:00→05:30)
[2023-10-28 04:25] LABS: BASOPHILS 0.4 % (0-2); EOSINOPHILS 1.9 % (0-6); HEMATOCRIT 43.6 % (35.0-50.0); HEMOGLOBIN 14.5 g/dL (12.0-18.0); LYMPHOCYTES 44.4 % (24-44); MCH 28.7 (27-36); MCHC 33.3 g/dl (30-36); MCV 86.3 fl (81-99); NEUTROPHILS 45.3 % (39-80); PLATELET COUNT 287 K/uL (140-440); RBC 5.05 M/ul (4.3-5.7); RDW 14.2 (10.5-15.0)
[2023-10-28 04:45] LABS: ALBUMIN 3.5 g/dL (3.4-5.0); ALCOHOL, MEDICAL <3 ng/dL (<3); ALKALINE PHOSPHATASE 107 U/L (46-116); ALT (SGPT) 18 U/L (14-59); ANION GAP 11.6 (7-21); AST (SGOT) 15 U/L (15-37); BILIRUBIN, TOTAL 0.3 ng/dL (0.2-1.0); BUN/CREATININE RATIO 10.61 (6.0-28.6); CALCIUM 9.2 mg/dL (8.5-10.1); CARBON DIOXIDE 28 mmol/L (21-32); CHLORIDE 102 mmol/L (98-107); CREATININE, SERUM 1.13 mg/dL (0.55-1.02); GLOMERULAR FILTRATION RATE,EST 59 mL/min (>60); POTASSIUM 3.6 mmol/L (3.5-5.1); PROTEIN, TOTAL 7.9 g/dL (6.4-8.2); TSH, 3RD GENERATION 0.383 uIU/mL (0.358-3.740); UREA NITROGEN 12 mg/dL (7-18)
[2023-10-28 07:20] LABS: BILIRUBIN, URINE NEGATIVE (negative); BLOOD/HGB, URINE NEGATIVE (Negative); KETONE, URINE NEGATIVE (Negative); LEUK ESTERASE, URINE NEGATIVE (negative); NITRITE, URINE NEGATIVE (negative)
[2023-10-28 08:33] VITALS: BP 152/129
[2023-10-28 08:35] LABS: AMPHETAMINES, URINE NEGATIVE (NEGATIVE); BARBITURATES, URINE NEGATIVE (NEGATIVE); BENZODIAZEPINE, URINE NEGATIVE (NEGATIVE); BUPRENORPHINE, URINE NEGATIVE (NEGATIVE); CANNABINOID, URINE POSITIVE (NEGATIVE); COCAINE, URINE NEGATIVE (NEGATIVE); ECSTASY, URINE NEGATIVE (NEGATIVE); FENTANYL, URINE NEGATIVE (NEGATIVE); METHADONE, URINE NEGATIVE (NEGATIVE); OPIATES, URINE NEGATIVE (NEGATIVE); OXYCODONE, URINE POSITIVE (NEGATIVE); PHENCYCLIDINE, URINE NEGATIVE (NEGATIVE)
== END 2023-10-28 08:35 | disposition home or self-care (01) ==
LOC: ED 03:37
PROVIDERS: Internal Medicine
DX: R25.1 Tremor, unspecified (principal); E03.9 Hypothyroidism, unspecified; Z88.8 Allergy status to other drugs, medicaments and biological substances; Z91.030 Bee allergy status; Z91.018 Allergy to other foods; Z79.899 Other long term (current) drug therapy
CPT/HCPCS: 36415; 70450; 70496; 70498; 80053; 80307; 81003; 84443; 85025; 99284-25; G0480; J1200; J2060; J7121; Q9967

== ENCOUNTER 2024-04-20 16:03 | Emergency (ER) | payer MEDICARE, MEDICAID, OTHER ==
[~2024-04-20] VITALS: Ht 149.9 cm; Wt 133.8 kg
[2024-04-20 16:51] LABS: BASOPHILS 0.4 % (0-2); EOSINOPHILS 1.1 % (0-6); HEMATOCRIT 52.6 % (35.0-50.0); HEMOGLOBIN 17.5 g/dL (12.0-18.0); LYMPHOCYTES 37.9 % (24-44); MCH 29.3 (27-36); MCHC 33.3 g/dl (30-36); MCV 87.8 fl (81-99); MONOCYTES 7.3 % (0-12); NEUTROPHILS 53.3 % (39-80); PLATELET COUNT 276 K/uL (140-440); RBC 5.99 M/ul (4.3-5.7); RDW 14.1 (10.5-15.0)
[2024-04-20 17:05] LABS: ALBUMIN 3.9 g/dL (3.4-5.0); ALBUMIN/GLOBULIN RATIO 0.81 (1.1-2.4); ANION GAP 18.6 (7-21); BUN/CREATININE RATIO 12.06 (6.0-28.6); CALCIUM 9.7 mg/dL (8.5-10.1); CREATININE, SERUM 1.16 mg/dL (0.55-1.02); POTASSIUM 3.6 mmol/L (3.5-5.1); PROTEIN, TOTAL 8.7 g/dL (6.4-8.2)
[2024-04-20 18:20] VITALS: BP 129/62
== END 2024-04-20 18:22 | disposition home or self-care (01) ==
LOC: ED 16:03
PROVIDERS: Emergency Medicine
DX: R10.32 Left lower quadrant pain (principal); E89.0 Postprocedural hypothyroidism; Z87.891 Personal history of nicotine dependence; Z88.8 Allergy status to other drugs, medicaments and biological substances; Z91.030 Bee allergy status; Z91.018 Allergy to other foods; Z79.51 Long term (current) use of inhaled steroids; Z79.890 Hormone replacement therapy; Z79.899 Other long term (current) drug therapy
CPT/HCPCS: 36415; 74176; 80053; 83690; 85025; 99284-25